=== PATIENT | female | born 1940 | race Caucasian/White ===

== ENCOUNTER 2019-04-25 11:12 | Inpatient (IN) ==
[2019-04-25 12:04] LABS: Eosinophils % 5.5 %; Mean Corpuscular Hemoglobin 30.2 pg (28.0-33.3); Mean Corpuscular Volume 93.2 fL (83.0-100.0); Monocytes % 6.4 %; Platelet Count 238 K/mcL (140-400)
[2019-04-25 12:06] LABS: Basophils % 0.2 %; Eosinophils # 0.5 K/mcL (0.0-0.6); Hematocrit 38.6 % (35.3-44.9); Hemoglobin 12.5 g/dL (11.5-15.4); Immature Granulocytes % 0.3 % (0-4); Lymphocytes # 0.5 K/mcL (0.6-4.6); Lymphocytes % 5.5 %; Mean Corpuscular HGB Conc 32.4 g/dL (31.6-35.5); Mean Platelet Volume 9.4 fL (9.4-12.4); Monocytes # 0.6 K/mcL (0.0-1.3); Neutrophils # 7.5 K/mcL (1.6-8.9); Red Blood Count 4.14 M/mcL (3.82-4.97); Red Cell Distribution Width 13.8 % (11.5-14.5); Segmented Neutrophils % 82.1 %; White Blood Count 9.1 K/mcL (4.3-11.1)
[2019-04-25 12:44] LABS: BUN/Creatinine Ratio 19 (6-26); Blood Urea Nitrogen 16 mg/dL (8-23); Calcium 9.4 mg/dL (8.6-10.3); Carbon Dioxide 25 mEq/L (23-29); Chloride 101 mEq/L (98-107); Glucose 79 mg/dL (70-105); Osmolality,Calculated 288 (280-300); Potassium 3.9 mEq/L (3.5-5.1); Sodium 139 mEq/L (136-145); Troponin I 0.03 ng/mL (< 0.04); eGFR For African Americans > 60 (> 60); eGFR For Non-African Americans > 60 (> 60)
[2019-04-25] MEDS ORDERED: methylPREDNISolone 125 MG/2 ML VIAL IVP ONE (13:05)
[2019-04-25] MEDS ORDERED: Ipratropium/Albuterol Neb 3 ML IH ONE (13:05)
--- NOTE | 2019-04-25 14:55 | Emergency Department Note ---
Disposition Clinical Impression: Acute exacerbation of chronic obstructive airways disease Disposition: Admitted As Inpatient Condition: Fair Time of Disposition: 15:00 SOB HPI - General Chief Complaint: ED Shortness of Breath/Dyspnea Stated Complaint: Possible pneumonia Time Seen by Provider: 04/25/19 11:20 Source: patient Limitations: no limitations Nursing Notes Reviewed: Yes Vital Signs Reviewed: Yes - History of Present Illness 79-year-old female presents emergency Department with concerns of difficulty in breathing. Patient reports that she had no episode of severe reflux 4 days ago and has since had difficulty in breathing. Patient reports cough productive of yellow-green sputum. She has a history of severe COPD. This occurred to the patient in the past. Patient reports a subjective history of fever however she did not take a temperature at home. Patient denies recent trauma. Reports chest pain only when coughing. - Related Data Home Medications Medication Instructions Recorded Confirmed Aspirin 81 mg PO DAILY 03/15/15 04/25/19 Cyanocobalamin (Vitamin B-12) 1,000 mcg PO DAILY 03/15/15 04/25/19 [Vitamin B-12] Esomeprazole Magnesium [Nexium] 40 mg PO DAILY 03/15/15 04/25/19 Atorvastatin [Lipitor] 10 mg PO HS 04/25/19 04/25/19 Calcium Carbonate/Vitamin D3 1 tab PO DAILY 04/25/19 04/25/19 [Calcium 600 + Vit D Tablet] Lisinopril [Zestril] 10 mg PO DAILY 04/25/19 04/25/19 Metoprolol Succinate [Toprol Xl] 25 mg PO DAILY 04/25/19 04/25/19 Tofacitinib Citrate [Xeljanz] 5 mg PO BID 04/25/19 04/25/19 predniSONE [PredniSONE] 2 mg PO DAILY 04/25/19 04/25/19 Previous Rx's Medication Instructions Recorded Albuterol Sulfate [Albuterol 2 puff IH Q4HR #1 hfa.aer.ad 08/08/18 Inhaler] Allergies Allergy/AdvReac Type Severity Reaction Status Date / Time Sulfa (Sulfonamide Allergy See Verified 04/25/19 20:34 Antibiotics) Comments Hydroxychloroquine AdvReac Vomiting Verified 04/25/19 20:34 [From Plaquenil] All systems ED: reviewed and negative except as stated. Review of Systems: As Per HPI Past Medical History - Past Medical History Attestation: Yes The following information was validated with the patient. Source: patient Medical history: Reports: COPD, hypertension Surgical history: Reports: cataract, knee replacement, orthopedic, other Psychiatric history: Reports: depression - Social History Smoking Status: Never smoker Smokeless Tobacco Status: No Alcohol use: Reports: none Drug use: Reports: none Physical Exam General: Alert and in no acute distress Skin: Warm, dry, intact Head: Normocephalic and atraumatic Neck: Supple, trachea midline and no tenderness Cardiovascular: RRR, no murmur, normal perfusion Respiratory: CTAB, no wheezing, cough, or respiratory distress Musculoskeletal: Normal strength, no tenderness, swelling or deformity GI: Soft, nontender, nondistended. Bowel sounds present Neuro: A&O to person, place, time and situation. No focal deficits noted on ex am Psychiatric: cooperative and appropriate mood and affect. - General Limitations: no limitations General appearance: alert, in no apparent distress Course Vital Signs Temperature 97 F L 04/25/19 11:13 Pulse Rate 66 04/25/19 11:13 Respiratory Rate 20 04/25/19 11:13 Blood Pressure 146/80 04/25/19 11:13 O2 Sat by Pulse Oximetry 95 04/25/19 11:13 Temperature 97.5 F L 04/25/19 19:54 Pulse Rate 95 04/25/19 19:54 Respiratory Rate 17 04/25/19 19:54 Blood Pressure 140/78 04/25/19 19:54 O2 Sat by Pulse Oximetry 93 04/25/19 19:54 Oxygen Delivery Oxygen Delivery Room Air Shortness of Breath/Dyspnea - [facility] Narrative Medical decision making narrative: Patient is afebrile, does not have a leukocytosis. Chest x-ray does not show acute infiltrate. She does have wheezing on the bilateral posterior lung rao and this is likely secondary to acute bronchitis versus acute COPD exacerbation. Patient was given breathing treatments and steroids emergency Department [facility] er she was unable to ambulate without becoming hypoxic. She desatted to 87% emergency department with ambulation. Patient will be admitted to hospitalist for further care and evaluation. - Medical Records Medical records reviewed: Yes I reviewed the patient's medical records. - Lab Data Lab results reviewed: Yes I reviewed the patient's lab results. Result diagrams: 04/25/19 11:46 09/10/19 11:46 Lab Results 04/25/19 04/25/19 04/25/19 Range/Units 11:46 11:46 11:46 WBC 9.1 (4.3-11.1) K/mcL RBC 4.14 (3.82-4.97) M/mcL Hgb 12.5 (11.5-15.4) g/dL Hct 38.6 (35.3-44.9) % MCV 93.2 (83.0-100.0) fL MCH 30.2 (28.0-33.3) pg MCHC 32.4 (31.6-35.5) g/dL RDW 13.8 (11.5-14.5) % Plt Count 238 (140-400) K/mcL MPV 9.4 (9.4-12.4) fL Immature Gran % 0.3 (0-4) % Seg Neutrophils % 82.1 % Lymphocytes % 5.5 % Monocytes % 6.4 % Eosinophils % 5.5 % Basophils % 0.2 % Neutrophils # 7.5 (1.6-8.9) K/mcL Lymphocytes # 0.5 L (0.6-4.6) K/mcL Monocytes # 0.6 (0.0-1.3) K/mcL Eosinophils # 0.5 (0.0-0.6) K/mcL Basophils # 0.0 (0.0-0.2) K/mcL Sodium 139 (136-145) mEq/L Potassium 3.9 (3.5-5.1) mEq/L Chloride 101 (98-107) mEq/L Carbon Dioxide 25 (23-29) mEq/L BUN 16 (8-23) mg/dL Creatinine 0.84 (0.60-1.20) mg/dL Est GFR ( Amer) > 60 (> 60) Est GFR (Non-Af Amer) > 60 (> 60) BUN/Creatinine Ratio 19 (6-26) Glucose 79 (70-105) mg/dL Calculated Osmolality 288 (280-300) Lactic Acid 1.2 (0.5-2.2) mmol/L Calcium 9.4 (8.6-10.3) mg/dL Troponin I 0.03 (< 0.04) ng/mL B-Natriuretic Peptide (Less than 100) pg/mL 04/25/19 Range/Units 11:46 WBC (4.3-11.1) K/mcL RBC (3.82-4.97) M/mcL Hgb (11.5-15.4) g/dL Hct (35.3-44.9) % MCV (83.0-100.0) fL MCH (28.0-33.3) pg MCHC (31.6-35.5) g/dL RDW (11.5-14.5) % Plt Count (140-400) K/mcL MPV (9.4-12.4) fL Immature Gran % (0-4) % Seg Neutrophils % % Lymphocytes % % Monocytes % % Eosinophils % % Basophils % % Neutrophils # (1.6-8.9) K/mcL Lymphocytes # (0.6-4.6) K/mcL Monocytes # (0.0-1.3) K/mcL Eosinophils # (0.0-0.6) K/mcL Basophils # (0.0-0.2) K/mcL Sodium (136-145) mEq/L Potassium (3.5-5.1) mEq/L Chloride (98-107) mEq/L Carbon Dioxide (23-29) mEq/L BUN (8-23) mg/dL Creatinine (0.60-1.20) mg/dL Est GFR ( Amer) (> 60) Est GFR (Non-Af Amer) (> 60) BUN/Creatinine Ratio (6-26) Glucose (70-105) mg/dL Calculated Osmolality (280-300) Lactic Acid (0.5-2.2) mmol/L Calcium (8.6-10.3) mg/dL Troponin I (< 0.04) ng/mL B-Natriuretic Peptide 145 H (Less than 100) pg/mL - Radiology Data Radiology results reviewed: Yes I reviewed the patient's radiology results. - EKG Data EKG attestation: Yes I reviewed and interpreted this EKG. EKG results narrative: Bradycardic sinus rhythm with a rate of 56 without evidence of STEMI or other dysrhythmia. QTC 413, QRS of 92
[2019-04-25] MEDS ORDERED: Mag Hydrox/Al Hydrox/Simeth 30 ML UDC PO PRN (15:11)
[2019-04-25] MEDS ORDERED: Naloxone 0.4 MG/ML INJ IVP PRN (15:11)
[2019-04-25] MEDS ORDERED: Acetaminophen 325 MG TABLET PO PRN (15:11)
[2019-04-25] MEDS ORDERED: MOM Conc 10 ML UD.LIQ PO PRN (15:11)
[2019-04-25] MEDS ORDERED: Ondansetron ODT 4 MG TAB.RAPDIS SL PRN (15:11)
[2019-04-25] MEDS ORDERED: Albuterol 2.5 MG/3 ML NEBULIZER IH PRN (15:14)
--- NOTE | 2019-04-25 15:40 | Internal Med History&Physical ---
Date of Encounter: 04/25/19 Time of Encounter: 15:15 Internal Medicine - H&P: HPI Chief complaint: cough and short of breath Admitted From: Emergency Dept Plans for Post Hospital Care: Home History of present illness: Ms. Jara is a 79 year old female with hx of RA for 54 years presented to ED with cough and dyspnea. She was evaluated and felt to have COPD and possibly pneumonia and admitted. Ms Jara stated that approx 4 days ago she had an episode of severe GERD and was up most of the night. Since that time she has had significant coughing and dyspnea. In the past she had a similar episode and had pneumonia develop at that time. She has felt feverish and chills. Did not take temp. Had episode of nausea and vomiting this AM. No diarrhea. Cough has been productive of purulent sputum. She was given steroids and aerosol in ED with improvement. Pt has hx of RA and maintains on prednisone 2mg daily due to prior hx of issues with stopping it (? adrenal insufficiency). Symptoms have improved with X eljanz. Past Med Surg Social Fam HX - Past Medical History Medical history: COPD, hypertension Additional medical history: SCHATZI RING,GOUT,PE,LUNG NODULE Psychiatric history: depression - Past Surgical History Surgical History: cataract, knee replacement, orthopedic, other Additional surgical history: SPINAL ABCESS,SKIN CANCER, - Social History Smoking Status: Never smoker Smokeless Tobacco Status: No Alcohol use: none Drug use: none - Family History Mother Living Status: Hx Family Cardiac Disorders: No Hx Family Respiratory Disorders: No Hx Family Cancer: No Hx Family GI Disorders: No Hx Family Genitourinary Disorders: No Hx Family Endocrine Disorder: No Hx Family Musculoskeletal Disorders: No Hx Family Neuromuscular Disorders: No Hx Family Neurologic Disorders: No Hx Family Autoimmune Disorders: Yes (RA) Hx Family Reproductive Disorders: No Hx Family Psychosocial Disorders: No Internal Medicine - H&P: Meds Aspirin 81 mg PO DAILY 03/15/15 [History] Atorvastatin [Lipitor] 10 mg PO DAILY 03/15/15 [History] Calcium Carbonate/Vitamin D3 [Calcium 600 + D Tablet] 1 tab PO DAILY 03/15/15 [History] Cyanocobalamin (Vitamin B-12) [Vitamin B-12] 1,000 mcg PO DAILY 03/15/15 [History] Esomeprazole Magnesium [Nexium] 40 mg PO DAILY 03/15/15 [History] Albuterol Sulfate [Albuterol Inhaler] 2 puff IH Q4HR #1 hfa.aer.ad 08/08/18 [Rx] Lisinopril 10 mg PO DAILY 04/25/19 [History] Metoprolol XL (24 HR) Succ 25 mg PO DAILY 04/25/19 [History] Prednisone 2 mg PO DAILY 04/25/19 [History] Xeljanz 5 mg PO BID 04/25/19 [History] Allergy/AdvReac Type Severity Reaction Status Date / Time Sulfa (Sulfonamide Allergy See Verified 04/25/19 11:17 Antibiotics) Comments Hydroxychloroquine AdvReac Vomiting Verified 04/25/19 11:17 [From Plaquenil] All Systems PM: A 10-system review of systems was performed and is negative for pertinent findings except as documented above in the HPI. - Constitutional Constitutional: chills, fatigue, fever(s), malaise - EENT Eyes: no change in vision, no loss of vision Ears: no decreased hearing Nose, mouth and throat: no dry mouth, no mouth pain - Cardiovascular Cardiovascular ROS IM: dyspnea, dyspnea on exertion, no chest pain, no edema, no lightheadedness, no orthopnea, no palpitations - Respiratory Respiratory: cough, dyspnea, dyspnea on exertion, wheezing, chest congestion, excessive phlegm production, change in phlegm color - Gastrointestinal Gastrointestinal: nausea, vomiting, no abdominal pain, no constipation, no diarrhea - Genitourinary Genitourinary: no difficulty urinating, no dysuria - Musculoskeletal Musculoskeletal ROS IM: arthralgias, deformity, joint swelling, limited range of motion, stiffness - Integumentary Integumentary IM: no rash - Neurological Neurological ROS: no dizziness, no paresthesias, no vertigo - Endocrine Endocrine IM: no excessive sweating - Hematologic/Lymphatic Hematologic/Lymphatic: no easy bleeding - Allergic/Immunologic Allergic/Immunologic: no itchy eyes - Constitutional Vitals: Temp Pulse Resp BP Pulse Ox 97 F L 110 22 144/83 100 04/25/19 11:13 04/25/19 15:23 04/25/19 15:23 04/25/19 15:23 04/25/19 15:23 General appearance: Present: A&O X 3, answers questions appropriately Exam: See below - Head Head exam: Present: atraumatic, normocephalic - Eye Eye exam: Present: EOMI, conjuntiva pink - ENT ENT exam: Present: mucous membranes dry - Neck Neck exam general surgery: Present: normal inspection, supple. Absent: nuchal rigidity - Respiratory Respiratory exam: Present: rales (R base), wheezes - Cardiovascular Cardiovascular exam: Present: RRR. Absent: systolic murmur, tachycardia - GI/Abdominal GI/Abdominal exam: Present: normal bowel sounds, soft. Absent: tenderness - Extremities Exam Extremities exam: Present: tenderness, warm. Absent: pedal edema (No significant joint swelling though there is chronic deformities from RA) - Neurological Exam Neurological exam: Present: alert, oriented X3, no focal deficits - Skin Skin exam: Present: dry, warm. Absent: rash Internal Med - H&P Results - Labs CBC & Chem 7: 04/25/19 11:46 04/25/19 11:46 Labs: Short CBC 04/25/19 Range/Units 11:46 WBC 9.1 (4.3-11.1) K/mcL Hgb 12.5 (11.5-15.4) g/dL Hct 38.6 (35.3-44.9) % Plt Count 238 (140-400) K/mcL Neutrophils # 7.5 (1.6-8.9) K/mcL BMP 04/25/19 11:46 Sodium 139 Potassium 3.9 Chloride 101 Carbon Dioxide 25 BUN 16 Creatinine 0.84 Glucose 79 Calcium 9.4 Cardiac Enzymes 04/25/19 Range/Units 11:46 Troponin I 0.03 (< 0.04) ng/mL - Impressions ITS Impressions Chest X-Ray 04/25/19 11:23 IMPRESSION: 1. No acute radiographic finding in the chest. D/ / Brock Turner MD / Brock Turner MD Interpreting Provider: Brock Turner MD - Assessment and Plan (1) Pneumonia Current Visit: Yes Status: Suspected Assessment and plan: Pt presented to ED with cough and dyspnea. Recent episode of severe GERD with p rior hx of pneumonia with a former GERD episode. Place in observation. Oxygen Aerosols, steroids IV abx. Check 2view CXR in AM. Fluids tonight. Check influenza, legionella and strep pneumoniae Qualifiers: Pneumonia type: aspiration pneumonia Aspiration pneumonia type: due to gastric secretions Laterality: right Lung location: lower lobe of lung Qualified Code(s): J69.0 - Pneumonitis due to inhalation of food and vomit (2) COPD exacerbation Current Visit: Yes Status: Suspected Assessment and plan: Observation Oxygen, aerosols, steroids, abx. (3) HTN (hypertension) Current Visit: Yes Status: Chronic Assessment and plan: Controlled at this time. Qualifiers: Hypertension type: essential hypertension Qualified Code(s): I10 - Essential (primary) hypertension (4) Rheumatoid arthritis Current Visit: Yes Status: Chronic Assessment and plan: Continue home meds. Steroid dose increased for lungs Qualifiers: Rheumatoid arthritis location: multiple sites Rheumatoid factor presence: unspecified presence Qualified Code(s): M06.9 - Rheumatoid arthritis, unspecified - Time Spent With Patient Total time spent is greater than 50% in coordination of care (as documented) at patient's floor/unit and/or counseling patient:
[2019-04-25] MEDS: Ipratropium/Albuterol Neb 3 ML IH SCH ×2 (15:49→22:44)
--- NOTE | 2019-04-25 16:19 | Electrocardiograph Report ---
[place] [address] Test Date: 2019-04-25 Pat Name: Susanne Jara Department: [id number] Room: 2A Gender: F [employer]ution Control Engineer: : 1940 Requested By: Bud Fish Order Number: [id number] Reading MD: Saman Chun Measurements Intervals [place] Rate: 56 P: -32 WI: 166 QRS: -45 QRSD: 92 T: 80 QT: 428 QTc: 413 Interpretive Statements Sinus rhythm LAD, Nonspecific T abnormalities, lateral leads Electronically Signed On 04-25-2019 16:17:56 EDT by Saman Chun
[2019-04-25] MEDS: MethylPREDNISolone 40 MG/ML VIAL IVP SCH ×2 (17:59→23:45)
[2019-04-25] MEDS: 0.9 % Sodium Chloride 1,000 ML IVC SCH (17:59)
[2019-04-26] MEDS: 0.9 % Sodium Chloride 1,000 ML IVC SCH (03:37)
[2019-04-26] MEDS: Ipratropium/Albuterol Neb 3 ML IH SCH ×3 (04:43→15:52)
[2019-04-26 04:50] LABS: Hematocrit 32.2 % (35.3-44.9); Mean Corpuscular HGB Conc 32.9 g/dL (31.6-35.5); Mean Corpuscular Hemoglobin 29.8 pg (28.0-33.3); Mean Corpuscular Volume 90.4 fL (83.0-100.0); Mean Platelet Volume 9.4 fL (9.4-12.4); Platelet Count 240 K/mcL (140-400); Red Blood Count 3.56 M/mcL (3.82-4.97); Red Cell Distribution Width 13.7 % (11.5-14.5); White Blood Count 9.4 K/mcL (4.3-11.1)
[2019-04-26 04:52] LABS: Hemoglobin 10.6 g/dL (11.5-15.4)
[2019-04-26 05:01] LABS: BUN/Creatinine Ratio 22 (6-26); Blood Urea Nitrogen 15 mg/dL (8-23); Calcium 8.6 mg/dL (8.6-10.3); Carbon Dioxide 21 mEq/L (23-29); Chloride 109 mEq/L (98-107); Glucose 184 mg/dL (70-105); Magnesium 1.5 mg/dL (1.6-2.6); Osmolality,Calculated 292 (280-300); Potassium 3.8 mEq/L (3.5-5.1); Sodium 138 mEq/L (136-145); eGFR For African Americans > 60 (> 60); eGFR For Non-African Americans > 60 (> 60)
[2019-04-26] MEDS: MethylPREDNISolone 40 MG/ML VIAL IVP SCH ×2 (05:42→21:15)
[2019-04-26] MEDS ORDERED: levoFLOXacin 750 MG/150 ML 750 MG/150 ML BAG IVPB SCH ×2 (08:00→09:00)
[2019-04-26] MEDS ORDERED: TOFACITINIB CITRATE 5 MG PO SCH (09:00)
[2019-04-26] MEDS: Metoprolol XL (24 HR) Succ 25 MG TAB.ER.24H PO SCH (09:03)
[2019-04-26] MEDS: Aspirin 81 MG TAB.CHEW PO SCH (09:03)
--- NOTE | 2019-04-26 09:28 | Internal Med Progress Note ---
<Frank Pandya - Last Filed: 04/26/19 13:51> Hospitalist Progress Note - Encounter Date of Encounter: 04/26/19 Time of Encounter: 09:21 - Subjective Interval History: Ms. Jara is an 79 y/o F who presented to the ED on 04/25 with difficulty breathing and SOB. She stated she had an episode of GERD 5 days ago and had been coughing ever since. Currently she is sitting comfortably in her bed and feels much better compared to when she arrived. Pt. complains of a headache and "a few" palpitations this morning which she believes may be due to her BP elevation today which is normally controlled at home; lightheadedness which is new onset, and wheezing. Pt. denies SOB, chest pain, coughing, vision changes, weakness, numbness, orthopnea, PND, abnormal urination or BM, and abdominal pain. - Exam Vitals: Temp Pulse Resp BP Pulse Ox 97.9 F 76 16 190/77 97 04/26/19 07:55 04/26/19 07:55 04/26/19 07:55 04/26/19 07:55 04/26/19 07:55 Exam: General: AOx3, no acute distress, pleasant affect Head: atraumatic, normocephalic Skin: Dry and warm, no rash, no lesions. Cardiovascular:S1 & S2, no m/r/g. No JVD. Lungs: Wheezing auscultated b/l, faint crackles in RLL base Abdomen:Soft, non-tender, no rigidity. Extremities:No edema, muscle strength and sensation intact Neurological:No focal deficits, cooperative with exam Pulses: Intact and regular on all 4 extremities Rest of the physical exam is non contributory. - Assessment and Plan (1) Pneumonia Current Visit: Yes Status: Suspected Assessment and Plan: Pt. presented to ED on 04/25 with dyspnea and SOB. Pt. stated she had severe GERD episode 4 days ago and has had pneumonia previously from severe GERD episodes. CXR on 04/25 showed no changes from previous CXR on 06/24/2018. Pt. started on IV Levaquin for suspected aspiration pneumonia; oxygen, steroids, and ipratropium/albuterol treatments for SOB. CXR on 04/26 showed no new pulmonary or cardiac processes. Cultures to be collected today, continuation of abx for suspected pneumonia. Pt. states she is feeling better compared to yesterday. (2) COPD exacerbation Current Visit: Yes Status: Suspected Assessment and Plan: Pt. being observed for exacerbation of COPD. Currently being treated with Ipratropium/albuterol treatments, oxygen, and steroids for SOB and dyspnea. Levaquin for possible aspiration pneumonia; CXR on 04/25 and 04/26 showed no new changes, cultures collected today to determine course of treatment. Continue treatment for possible pneumonia, beginning to decrease steroids and possibly discharge tomorrow. (3) HTN (hypertension) Current Visit: Yes Status: Chronic Assessment and Plan: Currently controlled, continuing home medications for HTN. (4) Rheumatoid arthritis Current Visit: Yes Status: Chronic Assessment and Plan: Currently controlled on Xeljanz and prednisone, no exacerbations at this time. Hgb decrease to 10.6 today, possibly side effect from xeljanz treatment; Hgb will be checked again on 04/27. Continuation of home medications. - Time Spent with Patient Total time spent is greater than 50% in coordination of care (as documented) at patient's floor/unit and/or counseling patient: Internal Medicine: Result - Labs CBC & Chem 7: 04/26/19 04:01 04/26/19 04:01 Labs: Short CBC 04/25/19 04/26/19 Range/Units 11:46 04:01 WBC 9.1 9.4 (4.3-11.1) K/mcL Hgb 12.5 10.6 L D (11.5-15.4) g/dL Hct 38.6 32.2 L (35.3-44.9) % Plt Count 238 240 (140-400) K/mcL Neutrophils # 7.5 (1.6-8.9) K/mcL BMP 04/25/19 04/26/19 11:46 04:01 Sodium 139 138 Potassium 3.9 3.8 Chloride 101 109 H Carbon Dioxide 25 21 L BUN 16 15 Creatinine 0.84 0.69 Glucose 79 184 H Calcium 9.4 8.6 Cardiac Enzymes 04/25/19 Range/Units 11:46 Troponin I 0.03 (< 0.04) ng/mL - Impressions Impressions Chest X-Ray 04/25/19 11:23 IMPRESSION: 1. No acute radiographic finding in the chest. D/ / Brock Turner MD / Brock Turner MD Interpreting Provider: Brock Turner MD Chest X-Ray 04/26/19 08:00 IMPRESSION: No acute cardiopulmonary process is seen. D/ / Ash Mcmillan MD / Ash Mcmillan MD Interpreting Provider: Ash Mcmillan MD Consult Discharge Plan - Plan Referrals: Joe Marie MD [Primary Care Provider] - <Tommy Person - Last Filed: 04/26/19 14:59> Hospitalist Progress Note - Encounter Date of Encounter: 04/26/19 - Exam Vitals: Temp Pulse Resp BP Pulse Ox 97.5 F L 82 16 146/77 97 04/26/19 11:35 04/26/19 11:35 04/26/19 11:35 04/26/19 11:35 04/26/19 11:35 - Assessment and Plan (1) Pneumonia Current Visit: Yes Status: Suspected (2) COPD exacerbation Current Visit: Yes Status: Suspected (3) HTN (hypertension) Current Visit: Yes Status: Chronic (4) Rheumatoid arthritis Current Visit: Yes Status: Chronic - Time Spent with Patient Total time spent is greater than 50% in coordination of care (as documented) at patient's floor/unit and/or counseling patient: Internal Medicine: Result - Labs CBC & Chem 7: 04/26/19 04:01 04/26/19 04:01 Labs: Short CBC 04/26/19 Range/Units 04:01 WBC 9.4 (4.3-11.1) K/mcL Hgb 10.6 L D (11.5-15.4) g/dL Hct 32.2 L (35.3-44.9) % Plt Count 240 (140-400) K/mcL BMP 04/26/19 04:01 Sodium 138 Potassium 3.8 Chloride 109 H Carbon Dioxide 21 L BUN 15 Creatinine 0.69 Glucose 184 H Calcium 8.6 - Impressions Impressions Chest X-Ray 04/26/19 08:00 IMPRESSION: No acute cardiopulmonary process is seen. D/ / Ash Mcmillan MD / Ash Mcmillan MD Interpreting Provider: Ash Mcmillan MD - Attending Attestation The history, physical exam, and medical decision making was performed by the medical student either while I was physically present and actively involved or I personally re-performed the exam and medical decision making. I have verified the accuracy of the medical student's documentation with regards to the history, physical exam findings, and medical decision making on 04/26/19. Ms Jara is currently hospitalized for presumed aspiration pneumonia. She remains moderate to high risk due to potential for worsening clinical status. Ms Jara is doing somewhat better today. No fever. Less cough. No pain. Still with some lightheadedness with standing and moving. Exam Alert Comfortable NC EOMI Mucus membranes dry Heart not tachy Rales R base with some bilateral wheeze Neck supple Abd soft. No edema. Moves all extremities. No rash. I/P 1. Probable asp pneumonia - continue abx as ordered. 2. COPD - decrease steroids. 3. Anemia - no signs of bleeding. Pt on Xeljanz. Recheck in AM. 4. Dizziness - ? volume related. Continue fluids. Probable d/c tomorrow. <Frank Pandya - Last Filed: 04/26/19 13:51> (1) Pneumonia Qualifiers: Pneumonia type: aspiration pneumonia Aspiration pneumonia type: due to gastric secretions Laterality: right Lung location: lower lobe of lung Qualified Code(s): J69.0 - Pneumonitis due to inhalation of food and vomit (3) HTN (hypertension) Qualifiers: Hypertension type: essential hypertension Qualified Code(s): I10 - Essential (primary) hypertension (4) Rheumatoid arthritis Qualifiers: Rheumatoid arthritis location: multiple sites Rheumatoid factor presence: unspecified presence Qualified Code(s): M06.9 - Rheumatoid arthritis, unspecified <Tommy Person - Last Filed: 04/26/19 14:59> (1) Pneumonia Qualifiers: Pneumonia type: aspiration pneumonia Aspiration pneumonia type: due to gas tric secretions Laterality: right Lung location: lower lobe of lung Qualified Code(s): J69.0 - Pneumonitis due to inhalation of food and vomit (3) HTN (hypertension) Qualifiers: Hypertension type: essential hypertension Qualified Code(s): I10 - Essential (primary) hypertension (4) Rheumatoid arthritis Qualifiers: Rheumatoid arthritis location: multiple sites Rheumatoid factor presence: unspecified presence Qualified Code(s): M06.9 - Rheumatoid arthritis, unspecified
[2019-04-26] MEDS ORDERED: Ringers Solution, Lactated 1,000 ML IVC SCH (15:00)
[2019-04-26] MEDS ORDERED: Perflutren Lipid Microsphere 1.3 ML in 0.9 % Sodium Chloride 8.7 ML IVP ONE (20:53)
--- NOTE | 2019-04-26 21:51 | Event Note ---
Date of Encounter: 04/26/19 Time of Encounter: 19:35 Alerted by pts. nurse ARETHA Duncan that the pt. was having right eye droop. Nurse requested I come see the pt. immediately. Went to see the pt. who was resting in bed. Right eye droop noted when compared to left. Daughter present stated that the droop had improved somewhat. I inquired if the pt. had a hx of CVA or TIA. Pt. stated she had a TIA 30-40 years ago but had no problems since. Patient stated that she felt her heart flutter today. Pt. denied hx of atrial fibrillation or anticoagulation. My neuro exam showed no facial droop, focal deficits, and strengths were equal bilaterally in UEs and LEs. Patient did state that she had recent difficulty finding her words. 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 Echocardiogram ordered. Last Echo was on 06/25/17 and showed LVEF of 55%, normal LV chamber size and wall thickness and function, mild left ventricular diastolic dysfunction, normal right ventricular structure and function, no evidence of pulmonary hypertension, and no significant valvular dysfunction. Stat MRI of the head/brain ordered w/o contrast. NIHSS Modified ordered. Padding to bedside rails. Communication order to allow for permissive HTN overnight w/close monitoring and reporting of BPs to me. Assess neurologic status Q2HR ordered. NPO until dysphagia screen passed. MRI results show prior insult right parietooccipital region with surrounding gliotic change, mild small vessel ischemic change in the periventricular white matter, and no acute infarct or acute hemorrhage. Nurse instructed to monitor this patient very closely and alert me immediately of any adverse or neurologic changes.
[2019-04-27] MEDS: Ipratropium/Albuterol Neb 3 ML IH SCH ×5 (00:06→22:02)
[2019-04-27 06:49] LABS: Basophils % 0.1 %; Hematocrit 28.8 % (35.3-44.9); Hemoglobin 9.5 g/dL (11.5-15.4); Immature Granulocytes % 0.5 % (0-4); Lymphocytes # 0.3 K/mcL (0.6-4.6); Lymphocytes % 2.2 %; Mean Corpuscular Hemoglobin 29.9 pg (28.0-33.3); Mean Corpuscular Volume 90.6 fL (83.0-100.0); Mean Platelet Volume 9.8 fL (9.4-12.4); Monocytes # 0.5 K/mcL (0.0-1.3); Monocytes % 3.1 %; Neutrophils # 13.8 K/mcL (1.6-8.9); Platelet Count 230 K/mcL (140-400); Red Blood Count 3.18 M/mcL (3.82-4.97); Red Cell Distribution Width 14.4 % (11.5-14.5); Segmented Neutrophils % 94.1 %
[2019-04-27 06:50] LABS: White Blood Count 14.7 K/mcL (4.3-11.1)
[2019-04-27 07:07] LABS: BUN/Creatinine Ratio 24 (6-26); Blood Urea Nitrogen 20 mg/dL (8-23); Calcium 8.8 mg/dL (8.6-10.3); Carbon Dioxide 21 mEq/L (23-29); Chloride 111 mEq/L (98-107); Glucose 194 mg/dL (70-105); Osmolality,Calculated 294 (280-300); Potassium 3.7 mEq/L (3.5-5.1); Sodium 138 mEq/L (136-145); eGFR For African Americans > 60 (> 60); eGFR For Non-African Americans > 60 (> 60)
[2019-04-27] MEDS: Magnesium Oxide 400 MG TABLET PO SCH (07:43)
[2019-04-27] MEDS: Metoprolol XL (24 HR) Succ 25 MG TAB.ER.24H PO SCH (07:44)
[2019-04-27] MEDS: MethylPREDNISolone 40 MG/ML VIAL IVP SCH ×2 (07:44→21:00)
[2019-04-27] MEDS: Aspirin 81 MG TAB.CHEW PO SCH (07:44)
[2019-04-27] MEDS: levoFLOXacin 750 MG TABLET PO SCH (07:44)
[2019-04-27] MEDS ORDERED: Isovue-370 500 ML BOTTLE IVP ONE (09:15)
--- NOTE | 2019-04-27 09:17 | Neurology - Consult Note ---
<Melo Hercules J - Last Filed: 04/27/19 16:30> Date of Encounter: 04/27/19 Time of Encounter: 09:15 Assessment and Plan (1) Ptosis Current Visit: Yes Status: Acute Neurology consult with concerns for CVA. Patient developed right eye ptosis overnight and dysphagia this morning. MRI of the brain obtained showing prior insult in the right parieto-occipital region with surrounding Liotti change. Mild small vessel ischemic changes in the periventricular white matter but no acute infarct or acute hemorrhage identified. The neurological exam was nonfocal and nonlateralizing without any symptoms which would make me suspect a central etiology. Brainstem was intact on exam as well. Given these findings I am suspicious that her symptoms are may be the result of myasthenia gravis, however we will also rule out acute coronary syndrome. I am ordering CT angiogram of both the head and neck; further recommendations pending this workup I will also order an acetylcholine receptor antibody Recommending speech consult for further evaluation low magnesium on admission of 1.5; IM team managing History of Present Illness Chief complaint: Rt eye ptosis of unknown etiology HPI: Ms. Jara is a 79 year old female with a PMH of COPD, HTN, RA (on Xeljanz). In brief, the patient notes that approximately 4 days ago she had experiencing GERD and generalized weakness and dyspnea with wheezing. This prompted evaluation in the ED and she was admitted and treated for a COPD exacerbation. Overnight the patient developed an episode of right eye ptosis. This morning she experienced an episode of dysphagia while eating breakfast. Neurology has been consulted for further evaluation with concern for a central neurological origin versus neuromuscular junction versus other. The patient denies any visual disturbance, headaches, head or neck pain/stiffness, focal weakness, sensory loss or changes, dizziness, nausea, vomiting, diarrhea, fevers, chills, night sweats, weight lo ss, urinary incontinence, fecal incontinence, dysuria, abdominal pain, rashes or lesions. At the time of my assessment this morning she notes that the right eye ptosis is completely resolved and denies any dysphagia. She does report that she still feels generally weak overall but is somewhat improved since admission with steroids. An MRI of the brain was completed showing a prior insults in the right parieto-occipital region with surrounding gliotic change. Mild small vessel ischemic change in the periventricular white matter. No acute infarct or acute hemorrhage found. CBC does reveal a mild leukocytosis with WBC of 14.7 and anemia with an H&H of 9.5/28.8 respectively. Due to panel shows hypomagnesemia with a serum mag of 1.5. Past Med Surg Social Fam HX - Past Medical History Medical history: COPD, hypertension Additional medical history: SCHATZI RING,GOUT,PE,LUNG NODULE Psychiatric history: depression - Past Surgical History Surgical History: cataract, knee replacement, orthopedic, other Additional surgical history: SPINAL ABCESS,SKIN CANCER, - Social History Smoking Status: Never smoker Smokeless Tobacco Status: No Alcohol use: none Drug use: none - Family History Mother Living Status: Hx Family Cardiac Disorders: No Hx Family Respiratory Disorders: No Hx Family Cancer: No Hx Family GI Disorders: No Hx Family Genitourinary Disorders: No Hx Family Endocrine Disorder: No Hx Family Musculoskeletal Disorders: No Hx Family Neuromuscular Disorders: No Hx Family Neurologic Disorders: No Hx Family Autoimmune Disorders: Yes (RA) Hx Family Reproductive Disorders: No Hx Family Psychosocial Disorders: No Medications and Allergies Aspirin 81 mg PO DAILY 03/15/15 [History] Cyanocobalamin (Vitamin B-12) [Vitamin B-12] 1,000 mcg PO DAILY 03/15/15 [History] Esomeprazole Magnesium [Nexium] 40 mg PO DAILY 03/15/15 [History] Albuterol Sulfate [Albuterol Inhaler] 2 puff IH Q4HR #1 [email or web address] 08/08/18 [Rx] Atorvastatin [Lipitor] 10 mg PO HS 04/25/19 [History] Calcium Carbonate/Vitamin D3 [Calcium 600 + Vit D Tablet] 1 tab PO DAILY 04/25/19 [History] Lisinopril [Zestril] 10 mg PO DAILY 04/25/19 [History] Metoprolol Succinate [Toprol Xl] 25 mg PO DAILY 04/25/19 [History] Tofacitinib Citrate [Xeljanz] 5 mg PO BID 04/25/19 [History] predniSONE [PredniSONE] 2 mg PO DAILY 04/25/19 [History] Allergy/AdvReac Type Severity Reaction Status Date / Time Sulfa (Sulfonamide Allergy See Verified 04/25/19 20:34 Antibiotics) Comments Hydroxychloroquine AdvReac Vomiting Verified 04/25/19 20:34 [From Plaquenil] All Systems: The remainder of the systems were reviewed and are negative Review of Systems: REVIEW OF SYSTEMS GENERAL: Negative for any nausea, vomiting, fevers, chills, or weight loss, fatigue NEUROLOGIC: Negative for any blurry vision, blind spots, double vision, dysarthria, hemiparesis, hemisensory deficits, vertigo, ataxia, seizures, paralysis, tingling, numbness, unilateral weakness or numbness/tingling Positive-right eye ptosis and dysphagia HEENT: Negative for any head trauma, neck trauma, neck stiffness, photophobia, phonophobia CARDIAC: Negative for any chest pain, peripheral edema. Positive-palpitations PULMONARY: Positive shortness of breath and wheezing on admission; this has resolved GASTROINTESTINAL: Negative for any abdominal pain, nausea, vomiting, bright red blood per rectum, melena. GENITOURINARY: Negative for any dysuria, hematuria, incontinence. ENDOCRINE: Thyroid trouble, heat/cold intolerance, excessive sweating MUSCULOSKELETAL: Positive-chronic decrease in activity tolerance due to rheumatoid arthritis The remainder of the review of systems reviewed and found to be negative Physical Examination - Vital Signs Vital Signs: Initial Vital Signs Temp Pulse Resp BP Pulse Ox 97 F L 66 20 146/80 95 04/25/19 11:13 04/25/19 11:13 04/25/19 11:13 04/25/19 11:13 04/25/19 11:13 - Exam Exam: Examination: General Examination: *CONSTITUTIONAL: Alert and oriented x3, no acute distress *GENERAL APPEARANCE OF PATIENT appears healthy and well groomed *EYES: pupils equal, round, reactive to light and accommodation, conjunctiva clear without masses or ulcerations, fundi normal. *CARDIOVASCULAR: no peripheral edema, distal temperature normal, dorsalis pedis pulses normal. Refer to vital signs * MUSCULOSKELETAL: *GAIT AND STATION: Deferred *ASSESSMENT OF MUSCLE STRENGTH IN THE UPPER AND LOWER EXTREMITIES bilateral deltoid, bicep, tricep, pharmacy sales representative strength, hip flexors ,anterior tibialis, dorsoflexion of the foot 5/5 *MUSCLE TONE IN THE UPPER AND LOWER EXTREMITIES normal. No abnormal movements, fasciculations or atrophy identified. Neurological: *ORIENTATION to person, situation, time and place *LANGUAGE AND FUNCTION no significant aphasia or dysarthia was noted. *ATTENTION AND CONCENTRATION are normal *LANGUAGE FUNCTION no significant aphasia or dysarthia was noted. *FUND OF KNOWLEDGE aware of current events, past history, vocabulary *MENTAL attention span and concentration normal. *CN II optic fundi were normal, no papilledema noted. *CN III,IV, PERRLA extraocular eye movements were full, no nystagmus, mild Rt eye ptosis noted *CN V shows normal sensation *CN VII shows normal facial movement symmetrically, upper and lower bilaterally. *CN VIII shows no significant hearing loss on exam *CN IX-X palate elevated symmetrically *CN XI normal strength in the sternocleidomastoid muscles, symmetrical shoulder shrugging. *CN XII tongue protruded in the midline, with normal strength and movement. *SENSORY EXAMINATION light touch intact *REFLEXES: DTRs in the bilateral biceps, brachioradialis and triceps are 2/4 and symmetrical bilaterally. Absent patellar due to knee replacements bilaterally. Achilles reflexes were 2/4 bilaterally *CEREBELLAR TESTING normal finger to nose, heel/knee/lyle *PAIN LEVEL 0/10 Results - Laboratory Findings CBC and BMP: 04/27/19 06:13 04/27/19 06:13 Abnormal lab findings: Abnormal lab results WBC 14.7 K/mcL (4.3-11.1) H D 04/27/19 06:13 RBC 3.18 M/mcL (3.82-4.97) L 04/27/19 06:13 Hgb 9.5 g/dL (11.5-15.4) L 04/27/19 06:13 Hct 28.8 % (35.3-44.9) L 04/27/19 06:13 Neutrophils # 13.8 K/mcL (1.6-8.9) H 04/27/19 06:13 Lymphocytes # 0.3 K/mcL (0.6-4.6) L 04/27/19 06:13 Chloride 111 mEq/L (98-107) H 04/27/19 06:13 Carbon Dioxide 21 mEq/L (23-29) L 04/27/19 06:13 Glucose 194 mg/dL (70-105) H 04/27/19 06:13 Magnesium 1.5 mg/dL (1.6-2.6) L 04/26/19 04:01 B-Natriuretic Peptide 145 pg/mL (Less than 100) H 04/25/19 11:46 - Diagnostic Findings Additional findings: MR/MR head/brain wo con IMPRESSION: Prior insult right parietooccipital region with surrounding gliotic change Mild small vessel ischemic change in the periventricular white matter No acute infarct or acute hemorrhage Consult Discharge Plan - Plan Referrals: Joe Marie MD [Primary Care Provider] - <Dagoberto Elizalde - Last Filed: 04/27/19 17:16> Date of Encounter: 04/27/19 Assessment and Plan (1) Ptosis Current Visit: Yes Status: Acute I have personally performed a [id number] assessment of the patient and have reviewed the PA/SENIOR IT BUSINESS ANALYST note. My impressions are as follows: It is my suspicion that we are dealing with a problem of the neuromuscular junction particularly myasthenia gravis. The patient's pupils were equally reactive intactness and in light. Extraocular motility was normal symmetrically. There is no evidence to suspect an individual cranial nerve III problem or Melissa syndrome. MRI scan was negative for evidence of acute brainstem infarct. No evidence of neoplasm in the brainstem. She does not have diplopia. We will check acetylcholine receptor antibody panel and I agree with CT angiogram of the head and neck. If this turns out to be ocular myasthenia gravis then either corticosteroids, or steroid sparing agents other treatment. Further recommendations will follow the outcome of the antibody testing panel. Qualifiers: Qualified Code(s): H02.401 - Unspecified ptosis of right eyelid History of Present Illness HPI: Chart was reviewed, patient was seen and examined independently. The case was discussed with the GLOBAL REGULATORY LEAD. I agree with the documentation of the history of present illness as stated above. All Systems: The remainder of the systems were reviewed and are negative Review of Systems: The balance of the systems review is negative. Physical Examination - Vital Signs Vital Signs: Initial Vital Signs Temp Pulse Resp BP Pulse Ox 97 F L 66 20 146/80 95 04/25/19 11:13 04/25/19 11:13 04/25/19 11:13 04/25/19 11:13 04/25/19 11:13 - Exam Exam: I have personally performed a [id number] assessment of the patient and have r eviewed the PA/SENIOR IT BUSINESS ANALYST note. My impressions are as follows: I agree with the documentation of the neurologic examination as outlined above. Results - Laboratory Findings CBC and BMP: 04/27/19 06:13 04/27/19 06:13 Abnormal lab findings: Abnormal lab results WBC 14.7 K/mcL (4.3-11.1) H D 04/27/19 06:13 RBC 3.18 M/mcL (3.82-4.97) L 04/27/19 06:13 Hgb 9.5 g/dL (11.5-15.4) L 04/27/19 06:13 Hct 28.8 % (35.3-44.9) L 04/27/19 06:13 Neutrophils # 13.8 K/mcL (1.6-8.9) H 04/27/19 06:13 Lymphocytes # 0.3 K/mcL (0.6-4.6) L 04/27/19 06:13 Chloride 111 mEq/L (98-107) H 04/27/19 06:13 Carbon Dioxide 21 mEq/L (23-29) L 04/27/19 06:13 Glucose 194 mg/dL (70-105) H 04/27/19 06:13 Magnesium 1.5 mg/dL (1.6-2.6) L 04/26/19 04:01 B-Natriuretic Peptide 145 pg/mL (Less than 100) H 04/25/19 11:46
--- NOTE | 2019-04-27 09:43 | Internal Med Progress Note ---
<Frank Pandya - Last Filed: 04/27/19 16:47> Hospitalist Progress Note - Encounter Date of Encounter: 04/27/19 Time of Encounter: 09:43 - Subjective Interval History: Ms. Jara is an 79 y/o F who is on hospital day 2 due to suspicion of aspiration pneumonitis. Pt. was started on levaquin and ipratropium/albuterol for dyspnea and SOB. Overnight, pt. had an episode of ptosis lasting approximately 2-2.5 hours and had some dysphagia this morning while attempting to eat a banana, otherwise pt. complains of some slight coughing. PT. denies confusion, weakness, lightheadedness, SOB, wheezing, or trouble urinating/BM. Patient is sitting comfortably in bed. - Exam Vitals: Temp Pulse Resp BP Pulse Ox 97.6 F 79 20 144/74 96 04/27/19 07:30 04/27/19 07:30 04/27/19 07:30 04/27/19 07:30 04/27/19 08:00 Exam: General: AOx3, no acute distress, pleasant affect Head: atraumatic, normocephalic Skin: Dry and warm, no rash, no lesions. Cardiovascular:S1 & S2, no m/r/g. No JVD. Lungs: Wheezing auscultated b/l, faint crackles in RLL base Abdomen:Soft, non-tender, no rigidity. Extremities:No edema, muscle strength and sensation intact Neurological:Pt. had episode of ptosis that resolved overnight; otherwise no focal deficits, cooperative with exam Pulses: Intact and regular on all 4 extremities Rest of the physical exam is non contributory. - Assessment and Plan (1) Pneumonia Current Visit: Yes Status: Suspected Assessment and Plan: Pt. presented to ED on 04/25 with dyspnea and SOB. Pt. stated she had severe GERD episode 6 days ago and has had pneumonia previously from severe GERD episodes. CXR on 04/25 showed no changes from previous CXR on 06/24/2018. Pt. started on IV Levaquin for suspected aspiration pneumonia; oxygen, steroids, and ipratropium/albuterol treatments for SOB. CXR on 04/26 showed no new pulmonary or cardiac processes. Cultures are still pending, continuation of abx for suspected pneumonia. Pt. states she is feeling much better, lungs sound much more clear. (2) COPD exacerbation Current Visit: Yes Status: Suspected Assessment and Plan: Pt. being observed for exacerbation of COPD. Currently being treated with Ipratropium/albuterol treatments, oxygen, and steroids for SOB and dyspnea. Levaquin for possible aspiration pneumonia; CXR on 04/25 and 04/26 showed no new changes, cultures pending. Continue treatment for possible pneumonia, steroid taper to continue. Pt. had episode of ptosis lasting approximately 2 hours last night and episode of dysphagia this morning. Neurology was consulted and examination showed no gross abnormalities in CN exam. CTA oh head and neck showed no abnormalities. (3) HTN (hypertension) Current Visit: Yes Status: Chronic Assessment and Plan: Currently controlled, continuing home medications for HTN. (4) Rheumatoid arthritis Current Visit: Yes Status: Chronic Assessment and Plan: Currently controlled on Xeljanz and prednisone, no exacerbations at this time. Hgb continues to trend down from 12.6 on 04/25 to 9.5 on 04/27 , possibly side effect from xeljanz treatment. Contact made with Pt.'s manager retail store Dr. Teressa Eden at the [facility] but was unable to speak to physician. Review of office records by nurse and PA at the [facility] demonstrated normal Hgb levels between 12-. Pt. instructed to stop xeljanz to try and recover Hgb level. GI consulted to do barium study on 04/28 and rectal exam for occult blood. Continued monitoring of Hgb. (5) Ptosis Current Visit: Yes Status: Acute Assessment and Plan: Pt. was admitted on 04/25 for COPD exacerbation and possible aspiration pneumonitis. Pt. had episode of ptosis lasting approximately 2 hours last night and episode of dysphagia this morning. Neurology was consulted and examination showed no gross abnormalities in CN exam. CTA oh head and neck showed no abnormalities. Labs sent for evaluation of acetylcholine receptor ab. Continue to monitor for new onset symptoms. - Time Spent with Patient Total time spent is greater than 50% in coordination of care (as documented) at patient's floor/unit and/or counseling patient: Internal Medicine: Result - Labs CBC & Chem 7: 04/27/19 06:13 04/27/19 06:13 Labs: Short CBC 04/27/19 Range/Units 06:13 WBC 14.7 H D (4.3-11.1) K/mcL Hgb 9.5 L (11.5-15.4) g/dL Hct 28.8 L (35.3-44.9) % Plt Count 230 (140-400) K/mcL Neutrophils # 13.8 H (1.6-8.9) K/mcL BMP 04/27/19 06:13 Sodium 138 Potassium 3.7 Chloride 111 H Carbon Dioxide 21 L BUN 20 Creatinine 0.82 Glucose 194 H Calcium 8.8 - Impressions Impressions Head CT 04/26/19 19:50 IMPRESSION: No acute intracranial abnormality. 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 D/ / Regino Esteban / Regino Esteban Interpreting Provider: Regino Esteban Brain MRI 04/26/19 21:26 IMPRESSION: Prior insult right parietooccipital region with surrounding gliotic change Mild small vessel ischemic change in the periventricular white matter No acute infarct or acute hemorrhage D/ / Fredo Castro / Fredo Castro Interpreting Provider: Fredo Castro Consult Discharge Plan - Plan Referrals: Joe Marie MD [Primary Care Provider] - <Tommy Person - Last Filed: 04/27/19 18:25> Hospitalist Progress Note - Encounter Date of Encounter: 04/27/19 - Exam Vitals: Temp Pulse Resp BP Pulse Ox 97.6 F 89 21 149/66 96 04/27/19 16:52 04/27/19 16:52 04/27/19 16:52 04/27/19 16:52 04/27/19 16:52 - Assessment and Plan (1) Pneumonia Current Visit: Yes Status: Suspected (2) COPD exacerbation Current Visit: Yes Status: Suspected (3) HTN (hypertension) Current Visit: Yes Status: Chronic (4) Rheumatoid arthritis Current Visit: Yes Status: Chronic (5) Ptosis Current Visit: Yes Status: Acute - Time Spent with Patient Total time spent is greater than 50% in coordination of care (as documented) at patient's floor/unit and/or counseling patient: Internal Medicine: Result - Labs CBC & Chem 7: 04/27/19 06:13 04/27/19 06:13 Labs: Short CBC 04/27/19 Range/Units 06:13 WBC 14.7 H D (4.3-11.1) K/mcL Hgb 9.5 L (11.5-15.4) g/dL Hct 28.8 L (35.3-44.9) % Plt Count 230 (140-400) K/mcL Neutrophils # 13.8 H (1.6-8.9) K/mcL BMP 04/27/19 06:13 Sodium 138 Potassium 3.7 Chloride 111 H Carbon Dioxide 21 L BUN 20 Creatinine 0.82 Glucose 194 H Calcium 8.8 - Impressions Impressions Head CT 04/26/19 19:50 IMPRESSION: No acute intracranial abnormality. 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 D/ / Regino Esteban / Regino Esteban Interpreting Provider: Regino Esteban Echocardiogram 04/26/19 20:36 Impressions: LVEF 60-65%. Normal LV chamber size, wall thickness and function. Moderate left ventricular diastolic dysfunction. Atypical septal motion consistent with bundle branch block. Normal right ventricular structure and function. No evidence of a PFO with agitated saline contrast. Mild aortic sclerosis suggested by Doppler. Mean gradient 10 mmHg. Mild tricuspid regurgitation. Mild pulmonary hypertension. Left Ventricular Wall Motion: Rest Echo Findings All wall segments showed normal motion. Findings: Study Quality * Technically adequate exam. ECG Findings * Normal sinus rhythm. * Sinus rhythm with BBB. Left Ventricle * LVEF 60-65%. * Normal LV chamber size, wall thickness and function. * Moderate left ventricular diastolic dysfunction. * Atypical septal motion consistent with bundle branch block. Right Ventricle * Normal right ventricular structure and function. Left Atrium * Mildly dilated left atrium. Right Atrium * Normal right atrial size. Interatrial Septum * No evidence of a PFO with agitated saline contrast. Aortic Valve * Trileaflet aortic valve. * No aortic regurgitation. * Mild aortic sclerosis suggested by Doppler. Mean gradient 10 mmHg. Mitral Valve * Mild mitral annular calcification * Trace mitral regurgitation. * No mitral stenosis. Tricuspid Valve * Normal tricuspid valve structure. * Mild tricuspid regurgitation. * Mild pulmonary hypertension. Pulmonic Valve * Normal pulmonic valve structure. * Mild pulmonic regurgitation. Aorta * Normally sized aortic root. Pericardium * The pericardium appears normal. IVC * Normal IVC dimensions and inspiratory collapse. Pulmonary Artery * Normal visualized portions of the main pulmonary artery. Brain MRI 04/26/19 21:26 IMPRESSION: Prior insult right parietooccipital region with surrounding gliotic change Mild small vessel ischemic change in the periventricular white matter No acute infarct or acute hemorrhage D/ / Fredo Castro / Fredo Castro Interpreting Provider: Fredo Castro Head CTA 04/27/19 09:15 IMPRESSION: 1. No acute intracranial abnormality. 2. 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 3. No flow limiting stenosis or dissection involving the cervical carotid/vertebral arteries. 4. No focal stenosis of the [id number]. D/ / Keyon Sommer MD / Keyon Sommer MD Interpreting Provider: Keyon Sommer MD Neck CTA 04/27/19 09:15 IMPRESSION: 1. No acute intracranial abnormality. 2. 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 3. No flow limiting stenosis or dissection involving the cervical carotid/vertebral arteries. 4. No focal stenosis of the [id number]. D/ / Keyon Sommer MD / Keyon Sommer MD Interpreting Provider: Keyon Sommer MD - Attending Attestation The history, physical exam, and medical decision making was performed by the medical student either while I was physically present and actively involved or I personally re-performed the exam and medical decision making. I have verified the accuracy of the medical student's documentation with regards to the history, physical exam findings, and medical decision making on 04/27/19. Ms Jara is currently admitted for pneumonia. She remains moderate to high risk due to potential for worsening clinical status. Ms Jara had episode of ptosis last night. Eval by neuro today. H/H lower as well. Having some dysphagia too. Exam Alert. Comfortable Mucus membranes dry NC EOMI Heart not tachy Decreased rales R base ABd soft No edema Moves all extremities No rash Slight ptosis R eye I/P 1. Ptosis - neuro eval appreciated 2. Anemia - contacted her manager retail store - hold Xeljanz. GI eval 3. Dysphagia - barium swallow and MBS per GI recommendation Further diagnoses and plan as above. <Frank Pandya - Last Filed: 04/27/19 16:47> (1) Pneumonia Qualifiers: Pneumonia type: aspiration pneumonia Aspiration pneumonia type: due to gastric secretions Laterality: right Lung location: lower lobe of lung Qualified Code(s): J69.0 - Pneumonitis due to inhalation of food and vomit (3) HTN (hypertension) Qualifiers: Hypertension type: essential hypertension Qualified Code(s): I10 - Essential (primary) hypertension (4) Rheumatoid arthritis Qualifiers: Rheumatoid arthritis location: multiple sites Rheumatoid factor presence: unspecified presence Qualified Code(s): M06.9 - Rheumatoid arthritis, unspecified <Tommy Person - Last Filed: 04/27/19 18:25> (1) Pneumonia Qualifiers: Pneumonia type: aspiration pneumonia Aspiration pneumonia type: due to gastric secretions Laterality: right Lung location: lower lobe of lung Qualified Code(s): J69.0 - Pneumonitis due to inhalation of food and vomit (3) HTN (hypertension) Qualifiers: Hypertension type: essential hypertension Qualified Code(s): I10 - Essential (primary) hypertension (4) Rheumatoid arthritis Qualifiers: Rheumatoid arthritis location: multiple sites Rheumatoid factor presence: unspecified presence Qualified Code(s): M06.9 - Rheumatoid arthritis, unspecified (5) Ptosis Qualifiers: Laterality: right Qualified Code(s): H02.401 - Unspecified ptosis of right eyelid
[2019-04-28 02:58] LABS: Basophils % 0.1 %; Hematocrit 29.1 % (35.3-44.9); Hemoglobin 9.7 g/dL (11.5-15.4); Immature Granulocytes % 0.8 % (0-4); Lymphocytes # 0.2 K/mcL (0.6-4.6); Lymphocytes % 1.7 %; Mean Corpuscular HGB Conc 33.3 g/dL (31.6-35.5); Mean Corpuscular Hemoglobin 30.6 pg (28.0-33.3); Mean Corpuscular Volume 91.8 fL (83.0-100.0); Mean Platelet Volume 9.2 fL (9.4-12.4); Monocytes # 0.4 K/mcL (0.0-1.3); Monocytes % 2.9 %; Neutrophils # 12.6 K/mcL (1.6-8.9); Platelet Count 225 K/mcL (140-400); Red Blood Count 3.17 M/mcL (3.82-4.97); Red Cell Distribution Width 14.6 % (11.5-14.5); Segmented Neutrophils % 94.5 %; White Blood Count 13.3 K/mcL (4.3-11.1)
[2019-04-28 03:20] LABS: BUN/Creatinine Ratio 28 (6-26); Blood Urea Nitrogen 25 mg/dL (8-23); Calcium 8.7 mg/dL (8.6-10.3); Carbon Dioxide 22 mEq/L (23-29); Chloride 110 mEq/L (98-107); Glucose 169 mg/dL (70-105); Osmolality,Calculated 296 (280-300); Potassium 4.4 mEq/L (3.5-5.1); Sodium 139 mEq/L (136-145); eGFR For African Americans > 60 (> 60); eGFR For Non-African Americans > 60 (> 60)
[2019-04-28] MEDS: Ipratropium/Albuterol Neb 3 ML IH SCH ×4 (04:10→22:35)
--- NOTE | 2019-04-28 10:31 | Gastroenterology Consult Note ---
<Dagoberto Shelley - Last Filed: 04/28/19 10:29> Date of Encounter: 04/28/19 Time of Encounter: 09:00 - Assessment and plan (1) Anemia Status: Acute Assessment and plan: Hgb on admission 12.5 and this AM Hgb 9.7 with MCV 91.8. Continue to monitor CBC and transfuse PRBC as needed. Check iron profile, ferritin, B12, and folate. Plan for EGD and colonoscopy as outpatient. Follow up with Dr. Arevalo next week in office. Qualifiers: Anemia type: unspecified type Qualified Code(s): D64.9 - Anemia, unspecified (2) Dysphagia Status: Acute Assessment and plan: Agree with barium swallow study as ordered. Consider EGD with possible dilation to r/o structural causes such as stricture, tumor, etc vs esophageal motility disorder as outpatient. Qualifiers: Dysphagia type: unspecified Qualified Code(s): R13.10 - Dysphagia, unspecified - Time Spent With Patient Total time spent is greater than 50% in coordination of care (as documented) at patient's floor/unit and/or counseling patient: GI History of Present Illness - Data of Consult Patient: new to practice Consult date: 04/28/19 Requesting Physician: Tommy Person DO - Consult Narrative Reason for consult: Dysphagia, anemia History of present illness: Ms. Jara is a 79 year old female with PMHx of COPD, HTN, PE, who presented to the ED with cough and dyspnea. She states 4 days before admission she had severe episode of GERD and was up most of the night. On 04/26 she developed an episode of right eye ptosis, then had episode of dysphagia on 04/27 while eating breakfast. She states her food felt like it got stuck in her throat. We were consulted to evaluate her dysphagia and anemia. Hgb on admission 12.5 and this AM Hgb 9.7 with MCV 91.8. She denies fever, chills, chest pain, abdominal pain, nausea, vomiting, melena, or hematochezia. Procedures: Colonoscopy 03/31/2016 Dr. Wick: 3 mm hyperplastic polyp. EGD 07/13/2014 Dr. Malcolm: Hiatus hernia, acute gastritis, multiple fundic gland polyps, mild chronic gastritis. EGD 06/03/2012 Dr. VanVoorhis: Hiatus hernia, acute gastritis, multiple fundic gland polyps. EGD 03/01/2011 Dr. Uirbe: Few gastric polyps. NSAIDs: ASA Anticoagulation: None Past Med Surg Social Fam HX - Past Medical History Medical history: COPD, hypertension Additional medical history: SCHATZI RING,GOUT,PE,LUNG NODULE Psychiatric history: depression - Past Surgical History Surgical History: cataract, knee replacement, orthopedic, other Additional surgical history: SPINAL ABCESS,SKIN CANCER, - Social History Smoking Status: Never smoker Smokeless Tobacco Status: No Alcohol use: none Drug use: none - Family History Mother Living Status: Hx Family Cardiac Disorders: No Hx Family Respiratory Disorders: No Hx Family Cancer: No Hx Family GI Disorders: No Hx Family Genitourinary Disorders: No Hx Family Endocrine Disorder: No Hx Family Musculoskeletal Disorders: No Hx Family Neuromuscular Disorders: No Hx Family Neurologic Disorders: No Hx Family Autoimmune Disorders: Yes (RA) Hx Family Reproductive Disorders: No Hx Family Psychosocial Disorders: No - Gastrointestinal Gastrointestinal: Present: as per HPI - Constitutional Constitutional: as per HPI - EENT Eyes: as per HPI Ears: Present: as per HPI Nose, mouth and throat: Present: as per HPI - Cardiovascular Cardiovascular ROS: Present: as per HPI - Respiratory Respiratory IM: Present: as per HPI - Genitourinary Genitourinary: Absent: change in color, Urinary frequency - Neurological ROS Neurological GI: Present: as per HPI - Hematologic/Lymphatic Hematologic/Lymphatic pediatric: Present: as per HPI - Musculoskeletal Musculoskeletal ROS GI: Present: as per HPI - Integumentary Integumentary GI: Present: as per HPI - Psychiatric ROS Psychiatric GI: Present: as per HPI - Endocrine Endocrine IM: Present: as per HPI - Constitutional Vitals: Temp Pulse Resp BP Pulse Ox 98.4 F 73 19 113/61 97 04/28/19 07:15 04/28/19 07:15 04/28/19 07:15 04/28/19 07:15 04/28/19 07:15 General appearance: Present: cooperative, A&O X 3, no acute distress, answers questions appropriately - Head Head exam: Present: atraumatic, normocephalic - Eye Eye exam: Present: normal appearance, sclera anicteric - ENT ENT exam: Present: mucous membranes moist - Neck Neck exam general surgery: Present: normal inspection, trachea midline - Respiratory Respiratory exam: Present: decreased breath sounds, CTAB. Absent: rales, rhonchi - Cardiovascular Cardiovascular exam: Present: RRR, +S1, +S2 - GI/Abdominal GI/Abdominal exam: Present: soft, no peritoneal signs. Absent: distended, firm, guarding, tenderness - Rectal Rectal exam: Present: deferred - Extremities Exam Extremities exam: Present: warm - Neurological Exam Neurological exam: Present: no focal deficits - Psychiatric Psychiatric exam: Present: normal affect, normal mood - Skin Skin exam: Present: dry, intact, normal color, warm Results - Labs CBC & Chem 7: 04/28/19 02:45 04/28/19 02:45 Labs: Last Result 04/28/19 02:45 Calcium 8.7 Entire Visit 04/28/19 02:45 Hgb 9.7 L Hct 29.1 L - Impressions Impressions Echocardiogram 04/26/19 20:36 Impressions: LVEF 60-65%. Normal LV chamber size, wall thickness and function. Moderate left ventricular diastolic dysfunction. Atypical septal motion consistent with bundle branch block. Normal right ventricular structure and function. No evidence of a PFO with agitated saline contrast. Mild aortic sclerosis suggested by Doppler. Mean gradient 10 mmHg. Mild tricuspid regurgitation. Mild pulmonary hypertension. Left Ventricular Wall Motion: Rest Echo Findings All wall segments showed normal motion. Findings: Study Quality * Technically adequate exam. ECG Findings * Normal sinus rhythm. * Sinus rhythm with BBB. Left Ventricle * LVEF 60-65%. * Normal LV chamber size, wall thickness and function. * Moderate left ventricular diastolic dysfunction. * Atypical septal motion consistent with bundle branch block. Right Ventricle * Normal right ventricular structure and function. Left Atrium * Mildly dilated left atrium. Right Atrium * Normal right atrial size. Interatrial Septum * No evidence of a PFO with agitated saline contrast. Aortic Valve * Trileaflet aortic valve. * No aortic regurgitation. * Mild aortic sclerosis suggested by Doppler. Mean gradient 10 mmHg. Mitral Valve * Mild mitral annular calcification * Trace mitral regurgitation. * No mitral stenosis. Tricuspid Valve * Normal tricuspid valve structure. * Mild tricuspid regurgitation. * Mild pulmonary hypertension. Pulmonic Valve * Normal pulmonic valve structure. * Mild pulmonic regurgitation. Aorta * Normally sized aortic root. Pericardium * The pericardium appears normal. IVC * Normal IVC dimensions and inspiratory collapse. Pulmonary Artery * Normal visualized portions of the main pulmonary artery. Head CTA 04/27/19 09:15 IMPRESSION: 1. No acute intracranial abnormality. 2. 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 3. No flow limiting stenosis or dissection involving the cervical carotid/vertebral arteries. 4. No focal stenosis of the azpumc-cc-Uy[place]. D/ / Keyon Sommer MD / Keyon Sommer MD Interpreting Provider: Keyon Sommer MD Neck CTA 04/27/19 09:15 IMPRESSION: 1. No acute intracranial abnormality. 2. 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 3. No flow limiting stenosis or dissection involving the cervical carotid/vertebral arteries. 4. No focal stenosis of the wsgiqz-si-Ntebdk. D/ / Keyon Sommer MD / Keyon Sommer MD Interpreting Provider: Keyon Sommer MD Consult Discharge Plan - Plan Additional Instructions: You are being discharged home on a prednisone taper. You will take this as prescribed for 8 days and resume your 2 mg maintenance prednisone after. You have also been prescribed an antibiotic named Augmentin for aspiration pne umonia. You are to take this for 6 days, twice per day, beginning this evening 05/01/19. Cardiology recommended a home holter monitor at discharge. We have stopped your Xeljanz secondary to anemia and myasthenia gravis symptoms at this time. Please follow-up with your rheumatoloigst for continued management. You were given a prescription for 30 days Pyridostigmine. Please take this as needed for problems swallowing and/or drooping eyelids. You are scheduled to follow-up with neurology in 1-2 weeks. Please follow-up with your PCP within 1-2 weeks. Return to the ER or call 911 immediately if you develop symptoms of chest pain, nausea, vomiting, acute weakness or facial drooping. Referrals: Fermín Arevalo MD [Partnered Physician] - (Schedule follow up for 1 week Web requested 05/01/2019) Joe Marie MD [Primary Care Provider] - 05/05/19 9:15 am (Please follow up as schedule...) Concetta Rivero MD [Partnered Physician] - 05/16/19 10:00 am (Please follow as schedule...) Prescriptions: Amoxicillin/Clavulanate [Augmentin] 875 mg PO BIDWM 6 Days #12 tablet Transmission Status: Received by [facility]/pharmacy #[id number] Pyridostigmine Br [Mestinon] 60 mg PO Q8HR PRN 30 Days #30 tablet PRN Reason: eye weakness Transmission Status: Received by [facility]/pharmacy #[id number] predniSONE [PredniSONE] 30 mg PO TAPER 8 Days #13 tablet Prescription Printed <Fermín Arevalo - Last Filed: 05/18/19 04:50> Date of Encounter: 04/28/19 - Time Spent With Patient Total time spent is greater than 50% in coordination of care (as documented) at patient's floor/unit and/or counseling patient: GI History of Present Illness - Data of Consult Requesting Physician: Tommy Person DO - Consult Narrative History of present illness: Ms. Jara is a 79 year old female - Constitutional Vitals: Temp Pulse Resp BP Pulse Ox 97.8 F 73 18 151/76 98 05/01/19 14:00 05/01/19 14:00 05/01/19 11:11 05/01/19 14:00 05/01/19 14:00 Results - Labs CBC & Chem 7: 05/01/19 03:35 05/01/19 03:35 - Attending Attestation Agree with assessment. Iron deficiency anemia. Will need EGD and colonoscopy as outpatient as no acute bleeding. May also need capsule based on the findings. Arrangements for a office visit and subsequent endoscopy are in the plan. I have personally performed a face to face evaluation on this patient. I have re viewed and agree with the care plan. History and Exam by me shows:
--- NOTE | 2019-04-28 11:15 | Neurology Progress Note ---
<Fuentes Mederos M - Last Filed: 04/28/19 13:14> Date of Encounter: 04/28/19 Time of Encounter: 09:45 Assessment and Plan (1) Ptosis Current Visit: Yes Status: Acute Symptoms resolved at this time. Patient reports ptosis was transient with spontaneous remission within 3 hours of symptoms onset. Acetylcholine Receptor Antibodies ordered to assess for Neuromuscular junction involvement such as in a Myasthenia Gravis. Given patients PMH including Rheumatoid arthritis she would be at a higher risk for developing Myasthenia Gravis. Importantly Guillaim [place] needs to be ruled out given patients recent pneumonia as well as two recent bu lbar signs in difficulty swallowing and ptosis. Spinal tap ordered to evaluate for GBS. Further recommendations per Dr. Elizalde, attending neurologist. Qualifiers: Laterality: right Qualified Code(s): H02.401 - Unspecified ptosis of right eyelid Subjective Principal diagnosis: Ptosis Interval history: Ms. Jara was seen today at bedside. No evidence of ptosis, weakness, or changes in vision at this time. Patient reports her symptoms lasted approximately 3 hours yesterday and resolved spontaneously. She states she was experiencing drooped eyelid on her right but denies blurry or double vision at that time or currently. She denies ever having similar episodes in the past. Patient does admit to past history of Rheumatoid Arthritis diagnosed at age 24 which she is currently treated with Xeljanz for and states "works wonders" She denies any facial drooping, weakness, numbness, tingling, dizziness, or fatigue currently. Objective - Constitutional Vitals: Temp Pulse Resp BP Pulse Ox 98.4 F 73 19 113/61 97 04/28/19 07:15 04/28/19 07:15 04/28/19 07:15 04/28/19 07:15 04/28/19 07:15 General appearance: Present: cooperative, A&O X 3, no acute distress, answers questions appropriately Exam: GENERAL: Comfortable in no acute distress HEENT: Normal LUNGS: CTA HEART: RRR, S1 S2 Audible, no murmur EXTREMITIES: No Pedal edema. DETAILED NEUROLOGICAL EXAMINATION: MENTAL STATUS: Oriented to person, place, date and situation. Memory: knows the President, Aware of recent events Recent Memory Intact, Attention span is normal Cranial Nerve Examination: CN - II: Visual Acuity, Field of Vision Normal, Fundus examination: No disk edema, Pupils- size shape reaction to light and accommodation: All normal. CN III, IV, : External ocular movements were intact, Pupils were reactive, Nodrooping of the eyelids CN V: Sensation over the face to light touch and pinprick all normal. Corneal reflexes not tested, jaw jerk normal. CN VII: No facial asymmetry, no flattening of nasolabial folds, no difficulty in closing the eyes, no loss of forehead wrinkles, no difficulty in eye-closure, frowning raising eyebrows. CNVIII: No significant hearing loss CN IX, X: Uvula centralized not deviated, Gag reflex: Not tested CN X1: Sternocleidomastoid, trapezius, normal or evidence of any weakness. CN X11: No Dysarthria, no wasting or fibrilation f tongue muscles, no deviation, tongue muscle strength normal. Motor examination: No hypertrophy, tone was normal, power grade 0-5 Upper limbs Proximal- No difficulty in lifting the arms above the head. Distal- No weakness in distal muscles On formal testing 5/5 all over Lower limbs On formal testing 5/5 all over Coordination: Pqvyyk-iu-cwxc normal. Target pursuit normal finger tapping normal, Rapid alternating moment of wrist normal Sensory system: Superficial sensations- Touch normal. Pain- Pinprick, Temperature all normal, Deep sensation normal, Joint position sense normal. Cortical sensation, Tactile discrimination, localization and extinction all normal. Deep tendon reflexes: Symmetrical bilateral Gait Examination: Deferred Results - Laboratory Findings CBC and BMP: 04/28/19 02:45 04/28/19 02:45 Abnormal lab findings: Abnormal lab results WBC 13.3 K/mcL (4.3-11.1) H 04/28/19 02:45 RBC 3.17 M/mcL (3.82-4.97) L 04/28/19 02:45 Hgb 9.7 g/dL (11.5-15.4) L 04/28/19 02:45 Hct 29.1 % (35.3-44.9) L 04/28/19 02:45 RDW 14.6 % (11.5-14.5) H 04/28/19 02:45 MPV 9.2 fL (9.4-12.4) L 04/28/19 02:45 Neutrophils # 12.6 K/mcL (1.6-8.9) H 04/28/19 02:45 Lymphocytes # 0.2 K/mcL (0.6-4.6) L 04/28/19 02:45 Chloride 110 mEq/L (98-107) H 04/28/19 02:45 Carbon Dioxide 22 mEq/L (23-29) L 04/28/19 02:45 BUN 25 mg/dL (8-23) H 04/28/19 02:45 BUN/Creatinine Ratio 28 (6-26) H 04/28/19 02:45 Glucose 169 mg/dL (70-105) H 04/28/19 02:45 Magnesium 1.5 mg/dL (1.6-2.6) L 04/26/19 04:01 B-Natriuretic Peptide 145 pg/mL (Less than 100) H 04/25/19 11:46 Consult Discharge Plan - Plan Referrals: Fermín Arevalo MD [Partnered Physician] - (Schedule follow up for 1 week) Joe Marie MD [Primary Care Provider] - <Dagoberto Elizalde - Last Filed: 04/28/19 15:46> Date of Encounter: 04/28/19 Assessment and Plan (1) Ptosis Current Visit: Yes Status: Acute I have personally performed a [id number]-jd-[id number] assessment of the patient and have reviewed the PA/SENIOR PUBLICATIONS SPECIALIST note. My impressions are as follows: I agree with the assessment and plan as stated above by Dr. Mederos. Recommend Mestinon 60 mg 3 times a day as treatment for symptoms of myasthenia gravis. The myasthenia gravis antibody panel was yet pending. However, she also has dysphagia felt that we should consider an rule out the possibility of theofficial variant of Guillain-[place]. The CSF protein count is yet pending. I will sign this case out to Dr. Rivero to follow-up with the weekend. Qualifiers: Laterality: right Qualified Code(s): H02.401 - Unspecified ptosis of right eyelid Subjective Interval history: Chart was reviewed, patient was seen and examined independently. The case was discussed with Dr. Mederos. I agree with his documentation of the subjective history as stated above. Lumbar puncture is been completed. No evidence of an infectious process however protein is yet pending. If the protein is elevated then I would recommend starting this patient on IVIG. I will also recommended we try Mestinon 60 mg 3 times a day on the event that we are dealing with myasthenia gravis. Objective - Constitutional Vitals: Temp Pulse Resp BP Pulse Ox 98.0 F 64 16 153/71 100 04/28/19 11:16 04/28/19 11:16 04/28/19 11:16 04/28/19 11:16 04/28/19 11:16 Exam: I have personally performed a xgnr-px-cqpy assessment of the patient and have reviewed the PA/SENIOR PUBLICATIONS SPECIALIST note. My impressions are as follows: I agree with the documentation of the neurologic exam as stated above. I would however like to add that her voice is somewhat hoarse and she does have difficulty with swallowing. Results - Laboratory Findings CBC and BMP: 04/28/19 02:45 04/28/19 02:45 Abnormal lab findings: Abnormal lab results WBC 13.3 K/mcL (4.3-11.1) H 04/28/19 02:45 RBC 3.17 M/mcL (3.82-4.97) L 04/28/19 02:45 Hgb 9.7 g/dL (11.5-15.4) L 04/28/19 02:45 Hct 29.1 % (35.3-44.9) L 04/28/19 02:45 RDW 14.6 % (11.5-14.5) H 04/28/19 02:45 MPV 9.2 fL (9.4-12.4) L 04/28/19 02:45 Neutrophils # 12.6 K/mcL (1.6-8.9) H 04/28/19 02:45 Lymphocytes # 0.2 K/mcL (0.6-4.6) L 04/28/19 02:45 Chloride 110 mEq/L (98-107) H 04/28/19 02:45 Carbon Dioxide 22 mEq/L (23-29) L 04/28/19 02:45 BUN 25 mg/dL (8-23) H 04/28/19 02:45 BUN/Creatinine Ratio 28 (6-26) H 04/28/19 02:45 Glucose 169 mg/dL (70-105) H 04/28/19 02:45 Magnesium 1.5 mg/dL (1.6-2.6) L 04/26/19 04:01 Transferrin 157 mg/dL (203-362) L 04/28/19 02:45 B-Natriuretic Peptide 145 pg/mL (Less than 100) H 04/25/19 11:46 Vitamin B12 206 pg/mL (250-1100) L 04/28/19 14:02
[2019-04-28 11:28] LABS: % Iron Saturation 30 % (15-50); Iron 65 mcg/dL (50-170); Transferrin 157 mg/dL (203-362)
[2019-04-28 11:47] LABS: Ferritin 65 ng/mL (10-120)
[2019-04-28 14:24] LABS: Red Blood Cell,CSF < 0.002 M/mcL
[2019-04-28 14:25] LABS: Appearance,CSF Clear (Clear)
[2019-04-28 15:09] LABS: Folate 15.7 ng/mL (3.0-16.0)
[2019-04-28] MEDS: Metoprolol XL (24 HR) Succ 25 MG TAB.ER.24H PO SCH (15:50)
[2019-04-28] MEDS: predniSONE 20 MG TABLET PO SCH (15:51)
[2019-04-28] MEDS: Magnesium Oxide 400 MG TABLET PO SCH (15:51)
[2019-04-28] MEDS: Aspirin 81 MG TAB.CHEW PO SCH (15:51)
[2019-04-28] MEDS: levoFLOXacin 750 MG TABLET PO SCH (15:51)
[2019-04-28] MEDS: Pyridostigmine Br 60 MG TABLET PO SCH ×2 (15:52→23:01)
[2019-04-28] MEDS ORDERED: Simethicone/Sodium Bic/Citr Ac 1 EACH GRAN.EF.PK PO ONE (16:22)
[2019-04-28] MEDS ORDERED: E-Z-HD (BARIUM SULF) SUSPENSION PO ONE (16:22)
[2019-04-28] MEDS ORDERED: E-Z-PAQUE (BARIUM SULF) SUSP 1 BOTTLE PO ONE (16:22)
[2019-04-28 16:49] LABS: Glucose,CSF 80 mg/dL (40-70); Total Protein,CSF 60 mg/dL (15-45)
--- NOTE | 2019-04-28 17:23 | Internal Med Progress Note ---
Hospitalist Progress Note - Encounter Date of Encounter: 04/28/19 Time of Encounter: 14:00 - Subjective Interval History: Ms Jara is currently admitted for pneumonia and R eye ptosis. She remains moderate to high risk due to potential for worsening clinical status. Ms Jara just returned from LP and modified barium swallow. Breathing is much improved. No fever or chills. Still with R eye ptosis. No other new symptoms. - Exam Vitals: Temp Pulse Resp BP Pulse Ox 97.4 F L 127 19 156/73 96 04/28/19 16:06 04/28/19 16:06 04/28/19 16:06 04/28/19 16:06 04/28/19 16:06 Exam: General: Alert and oriented. Comfortable at this time. Skin: Normal color, no rash, H: Normocephalic. EENT: EOMI, Slight R ptosis, pupils equal. Mucus membranes moist. Cardiovascular: Normal S1 & S2, no murmurs Pulse regular. Not tachycardic Lungs: Normal breath sounds, no wheezes. Improved sounds R base. Abdomen: Soft, non-tender, Normal bowel sounds. Extremities: No edema. Chronic RA deformities Neurological: Normal cognition and motor skills. Pulses: radial pulses normal +2. Rest of the physical exam is non contributory - Assessment and Plan (1) Pneumonia Current Visit: Yes Status: Suspected Assessment and Plan: Pt presented to ED with cough and dyspnea. Recent episode of severe GERD with prior hx of pneumonia with a former GERD episode. Has improved with abx. Anticipate will stop after fifth dose. (2) COPD exacerbation Current Visit: Yes Status: Suspected Assessment and Plan: Improved with steroids. Change to PO tomorrow. (3) HTN (hypertension) Current Visit: Yes Status: Chronic Assessment and Plan: Controlled at this time. (4) Rheumatoid arthritis Current Visit: Yes Status: Chronic Assessment and Plan: Continue home meds. Steroid dose increased for lungs Xeljanz currently on hold due to anemia (5) Ptosis Current Visit: Yes Status: Acute (6) Dysphagia Current Visit: Yes Status: Acute Assessment and Plan: Pt with symptoms of dysphagia. Started on Mestinon today for possible myasthenia. Also to have LP for possible GBS. (7) Anemia Current Visit: Yes Status: Acute Assessment and Plan: B12 low as well as chronic disease Replace. (8) Ptosis, right eyelid Current Visit: Yes Status: Acute Assessment and Plan: Appreciate neuro input. Mestinon started today. - Time Spent with Patient Total time spent is greater than 50% in coordination of care (as documented) at patient's floor/unit and/or counseling patient: Internal Medicine: Result - Labs CBC & Chem 7: 04/28/19 02:45 04/28/19 02:45 Labs: Short CBC 04/28/19 Range/Units 02:45 WBC 13.3 H (4.3-11.1) K/mcL Hgb 9.7 L (11.5-15.4) g/dL Hct 29.1 L (35.3-44.9) % Plt Count 225 (140-400) K/mcL Neutrophils # 12.6 H (1.6-8.9) K/mcL BMP 04/28/19 02:45 Sodium 139 Potassium 4.4 Chloride 110 H Carbon Dioxide 22 L BUN 25 H Creatinine 0.89 Glucose 169 H Calcium 8.7 - Impressions Impressions Barium Swallow X-Ray 04/28/19 09:00 IMPRESSION: Moderate gastroesophageal reflux seen to the level of mid esophagus. A small diverticulum in the mid to distal portion of the esophagus. D/ / Jasen Baker MD / Jasen Baker MD Interpreting Provider: Jasen Bkaer MD Videofluoroscopic Swallow 04/28/19 09:00 IMPRESSION: Swallowing mechanism grossly within normal limits without evidence of aspiration. Please see separate speech pathology report for full discussion of findings and recommendations. D/ / Jasen Baker MD / Jasen Baker MD Interpreting Provider: Jasen Baker MD Lumbar Puncture Fluoroscopy 04/28/19 11:31 IMPRESSION: Successful fluoroscopic-guided lumbar puncture. D/ / Jasen Baker MD / Jasen Baker MD Interpreting Provider: Jasen Baker MD Consult Discharge Plan - Plan Referrals: Fermín Arevalo MD [Partnered Physician] - (Schedule follow up for 1 week) Joe Marie MD [Primary Care Provider] - (1) Pneumonia Qualifiers: Pneumonia type: aspiration pneumonia Aspiration pneumonia type: due to gastric secretions Laterality: right Lung location: lower lobe of lung Qualified Code(s): J69.0 - Pneumonitis due to inhalation of food and vomit (3) HTN (hypertension) Qualifiers: Hypertension type: essential hypertension Qualified Code(s): I10 - Essential (primary) hypertension (4) Rheumatoid arthritis Qualifiers: Rheumatoid arthritis location: multiple sites Rheumatoid factor presence: unspecified presence Qualified Code(s): M06.9 - Rheumatoid arthritis, unspecified (5) Ptosis Qualifiers: Laterality: right Qualified Code(s): H02.401 - Unspecified ptosis of right eyelid (6) Dysphagia Qualifiers: Dysphagia type: unspecified Qualified Code(s): R13.10 - Dysphagia, unspecified (7) Anemia Qualifiers: Anemia type: unspecified type Qualified Code(s): D64.9 - Anemia, unspecified
[2019-04-29] MEDS: Ipratropium/Albuterol Neb 3 ML IH SCH ×4 (04:07→22:31)
[2019-04-29] MEDS: levoFLOXacin 750 MG TABLET PO SCH (07:12)
[2019-04-29] MEDS: Aspirin 81 MG TAB.CHEW PO SCH (07:12)
[2019-04-29] MEDS: predniSONE 20 MG TABLET PO SCH (07:12)
[2019-04-29] MEDS: Magnesium Oxide 400 MG TABLET PO SCH (07:12)
[2019-04-29] MEDS: Metoprolol XL (24 HR) Succ 25 MG TAB.ER.24H PO SCH (07:12)
[2019-04-29 07:14] LABS: Hematocrit 32.9 % (35.3-44.9); Mean Corpuscular HGB Conc 33.4 g/dL (31.6-35.5); Mean Corpuscular Hemoglobin 30.4 pg (28.0-33.3); Mean Corpuscular Volume 90.9 fL (83.0-100.0); Mean Platelet Volume 9.4 fL (9.4-12.4); Platelet Count 242 K/mcL (140-400); Red Blood Count 3.62 M/mcL (3.82-4.97); Red Cell Distribution Width 14.7 % (11.5-14.5); White Blood Count 11.2 K/mcL (4.3-11.1)
[2019-04-29] MEDS: Pyridostigmine Br 60 MG TABLET PO SCH ×2 (07:16→16:13)
[2019-04-29 07:22] LABS: Alanine Aminotransferase 21 Units/L (7-52); Albumin 3.5 g/dL (3.5-5.7); Albumin/Globulin Ratio 1.4 (1.1-2.2); Alkaline Phosphatase 61 Units/L (34-104); Aspartate Amino Transferase 28 Units/L (13-39); BUN/Creatinine Ratio 27 (6-26); Bilirubin,Total 0.4 mg/dL (0.3-1.0); Blood Urea Nitrogen 23 mg/dL (8-23); Calcium 9.1 mg/dL (8.6-10.3); Carbon Dioxide 24 mEq/L (23-29); Chloride 106 mEq/L (98-107); Globulin 2.5 g/dL (2.4-3.5); Glucose 123 mg/dL (70-105); Magnesium 1.9 mg/dL (1.6-2.6); Osmolality,Calculated 295 (280-300); Sodium 140 mEq/L (136-145); eGFR For African Americans > 60 (> 60); eGFR For Non-African Americans > 60 (> 60)
--- NOTE | 2019-04-29 12:18 | Neurology Progress Note ---
Date of Encounter: 04/29/19 Time of Encounter: 11:59 Assessment and Plan (1) Ptosis Current Visit: Yes Status: Acute Patient with RA on Xeljanc for two years who developed acute onset of transient right eyelid drooping and mild swallowing difficulty in the setting of probable pneumonia causing SOB. No limb weakness, DTRs are preserved. Suspect myasthenia Gravis which can cause ocular bulbar weakness. Although the symptoms have resolved and she may have responded to Mestinon. Patient is currently having non focal neurological examination. Elevated CSF protein at 60 is likely a nonspecific finding and this does not support the diagnosis of Guillain [place]/Jara Cutler variant without clinical areflexia and limb weakness/ophthalmoplegia. Will recommend neurology follow up in 1-2 weeks to follow up Myasthenia Gravis panel and symptoms. Agree with Mestinon 60mg q4 hour prn. I discussed her that if no symptoms she does not need to take mestinion. Agree with low dose of steroid therapy for her pulmonary conditions. Okay to discharge from neurology perspective. Qualifiers: Laterality: right Qualified Code(s): H02.401 - Unspecified ptosis of right eyelid Subjective Principal diagnosis: Ptosis and difficulty swallowing, SOB Interval history: Patient is seen and examined at bedside as a follow up from neurology service. She was initially seen by Dr. Dagoberto Elizalde neurology in the last few days. She developed SOB thought to be related to pneumonia. She developed transient right eyelid drooping and slight swallowing difficulty prior to admission which was subsequently resolved. She was thought to have possible myasthenia gravis with presence of ocular and bulbar symptoms without limb weakness. She has been t reated with Xeljanc 10 mg twice a day since the last 2 years which helped her arthritic pain significantly. Patient completed lumbar puncture for CSF study to assess possibility of Guillain [place] syndrome due to her proceeding pneumonia and presentation with SOB, eyelid drooping, swallowing difficulty and weakness. CSF showed normal cell count but slightly elevated protein level of 60. Clinically, the patient's denies any significant neurological deficits at this time. Eyelid drooping and swallowing difficulty already resolved. Patient reports no limb weakness. Most importantly, patient's knee reflex are preserved and this would argue against diagnosis of Guillain [place] or Jara Cutler variant Objective - Constitutional Vitals: Temp Pulse Resp BP Pulse Ox 97.9 F 73 16 157/67 95 04/29/19 11:41 04/29/19 11:41 04/29/19 11:41 04/29/19 11:41 04/29/19 11:41 General appearance: Present: cooperative, A&O X 3, no acute distress, answers questions appropriately - Neurological Exam Sensorimotor examination: Present: intact Motor Examination: Present: grossly full strength in all extremities Motor examination - right side: 5/5: deltoids, biceps, triceps, wrist flexion, wrist extension, straightening machine feeder, hip flexors, tibialis Anterior, quadriceps, toe extension (EHL), plantarflexion Motor examination - left side: 5/5: deltoids, biceps, triceps, wrist flexion, wrist extension, hip flexors, straightening machine feeder, quadriceps, tibialis Anterior, toe extension (EHL), plantarflexion Sensation intact: Present: intact Posture: Present: other (None) Reflex and gait examination: intact Reflexes: Biceps: 1+, Triceps: 1+, Brachioradialis: 1+, Patella: 2+, Achilles: 1+ Mental Status Examination: Present: awake, alert, oriented to person, oriented to place, oriented to time, follows commands appropriately, answers questions appropriately, no agnosia, no aphasia, no aproxia, lucid, does not follow commands Cranial nerve examination: Present: PERRL, EOMI, visual rao intact, corneal reflexes brisk symmetrically, sensory to face intact, mastication intact, no facial asymmetry is present, no dysarthria, hearing is intact symmetrically, soft palate elevates bilaterally upon phonation, gag reflex intact, flexes SCM and trapezius muscles symmetrically with full power, tongue protrudes midline Results - Laboratory Findings CBC and BMP: 04/29/19 06:38 04/29/19 06:38 Abnormal lab findings: Abnormal lab results WBC 11.2 K/mcL (4.3-11.1) H 04/29/19 06:38 RBC 3.62 M/mcL (3.82-4.97) L 04/29/19 06:38 Hgb 11.0 g/dL (11.5-15.4) L 04/29/19 06:38 Hct 32.9 % (35.3-44.9) L 04/29/19 06:38 RDW 14.7 % (11.5-14.5) H 04/29/19 06:38 MPV 9.2 fL (9.4-12.4) L 04/28/19 02:45 Neutrophils # 12.6 K/mcL (1.6-8.9) H 04/28/19 02:45 Lymphocytes # 0.2 K/mcL (0.6-4.6) L 04/28/19 02:45 Chloride 110 mEq/L (98-107) H 04/28/19 02:45 Carbon Dioxide 22 mEq/L (23-29) L 04/28/19 02:45 BUN 25 mg/dL (8-23) H 04/28/19 02:45 BUN/Creatinine Ratio 27 (6-26) H 04/29/19 06:38 Glucose 123 mg/dL (70-105) H 04/29/19 06:38 Magnesium 1.5 mg/dL (1.6-2.6) L 04/26/19 04:01 Transferrin 157 mg/dL (203-362) L 04/28/19 02:45 B-Natriuretic Peptide 145 pg/mL (Less than 100) H 04/25/19 11:46 Serum Total Protein 6.0 g/dL (6.4-8.9) L 04/29/19 06:38 Vitamin B12 206 pg/mL (250-1100) L 04/28/19 14:02 CSF Glucose 80 mg/dL (40-70) H 04/28/19 Unknown CSF Total Protein 60 mg/dL (15-45) H 04/28/19 Unknown Consult Discharge Plan - Plan Referrals: Fermín Arevalo MD [Partnered Physician] - (Schedule follow up for 1 week) Joe Marie MD [Primary Care Provider] -
--- NOTE | 2019-04-29 12:37 | Internal Med Progress Note ---
Hospitalist Progress Note - Encounter Date of Encounter: 04/29/19 Time of Encounter: 12:37 - Subjective Interval History: Ms Jara is currently admitted for pneumonia and anemia. She remains moderate to high risk due to potential for worsening clinical and respiratory status. Ms Jara had MBS yesterday. Today she said she coughed up white mucus looking like "chalk." Seems more congested today. Thinks the Mestinon has helped with her eye. No fever or chills. No CP. No GI issues. - Exam Vitals: Temp Pulse Resp BP Pulse Ox 97.9 F 73 16 157/67 95 04/29/19 11:41 04/29/19 11:41 04/29/19 11:41 04/29/19 11:41 04/29/19 11:41 Exam: General: Alert and oriented. Comfortable at this time. Skin: Normal color, no rash, H: Normocephalic. EENT: EOMI, Slight R ptosis - seems less today. Mucus membranes moist. Cardiovascular: Normal S1 & S2, no murmurs Pulse regular. Lungs: Upper airway congestion noted. Wheeze in upper lobes L greater than R. Abdomen: Soft, non-tender, Normal bowel sounds. Extremities: No edema. Chronic RA deformities Neurological: Normal cognition and motor skills. Pulses: radial pulses normal +2. Rest of the physical exam is non contributory - Assessment and Plan (1) Pneumonia Current Visit: Yes Status: Suspected Assessment and Plan: Pt presented to ED with cough and dyspnea. Recent episode of severe GERD with prior hx of pneumonia with a former GERD episode. Chest is more congested today after MBS yesterday. Repeat CXR. Continue diet for now. Abx changed to Unasyn. (2) COPD exacerbation Current Visit: Yes Status: Suspected Assessment and Plan: Improved with steroids. Currently on PO. Will plan for taper. (3) HTN (hypertension) Current Visit: Yes Status: Chronic Assessment and Plan: Controlled at this time. (4) Rheumatoid arthritis Current Visit: Yes Status: Chronic Assessment and Plan: Continue home meds. Steroid dose increased for lungs Xeljanz currently on hold due to anemia (5) Ptosis Current Visit: Yes Status: Acute Assessment and Plan: Appears to be autoimmune/Myasthenia. Seems better with mestinon. Plan for PRN Mestinon at discharge. (6) Dysphagia Current Visit: Yes Status: Acute Assessment and Plan: Continues with some coughing and congestion. MBS negative. (7) Anemia Current Visit: Yes Status: Acute Assessment and Plan: B12 low. Anemia improving with holding Xeljanz. - Time Spent with Patient Total time spent is greater than 50% in coordination of care (as documented) at patient's floor/unit and/or counseling patient: Internal Medicine: Result - Labs CBC & Chem 7: 04/29/19 06:38 04/29/19 06:38 Labs: Short CBC 04/29/19 Range/Units 06:38 WBC 11.2 H (4.3-11.1) K/mcL Hgb 11.0 L (11.5-15.4) g/dL Hct 32.9 L (35.3-44.9) % Plt Count 242 (140-400) K/mcL BMP 04/29/19 06:38 Sodium 140 Potassium 4.0 Chloride 106 Carbon Dioxide 24 BUN 23 Creatinine 0.84 Glucose 123 H Calcium 9.1 Liver Function 04/29/19 Range/Units 06:38 Total Bilirubin 0.4 (0.3-1.0) mg/dL AST 28 (13-39) Units/L ALT 21 (7-52) Units/L Alkaline Phosphatase 61 (34-104) Units/L Albumin 3.5 (3.5-5.7) g/dL - Impressions Impressions Barium Swallow X-Ray 04/28/19 09:00 IMPRESSION: Moderate gastroesophageal reflux seen to the level of mid esophagus. A small diverticulum in the mid to distal portion of the esophagus. D/ / Jasen Baker MD / Jasen Baker MD Interpreting Provider: Jasen Baker MD Videofluoroscopic Swallow 04/28/19 09:00 IMPRESSION: Swallowing mechanism grossly within normal limits without evidence of aspiration. Please see separate speech pathology report for full discussion of findings and recommendations. D/ / Jasen Baker MD / Jasen Baker MD Interpreting Provider: Jasen Baker MD Lumbar Puncture Fluoroscopy 04/28/19 11:31 IMPRESSION: Successful fluoroscopic-guided lumbar puncture. D/ / Jasen Baker MD / Jasen Baker MD Interpreting Provider: Jasen Baker MD Consult Discharge Plan - Plan Referrals: Fermín Arevalo MD [Partnered Physician] - (Schedule follow up for 1 week) Joe Marie MD [Primary Care Provider] - (1) Pneumonia Qualifiers: Pneumonia type: aspiration pneumonia Aspiration pneumonia type: due to ga stric secretions Laterality: right Lung location: lower lobe of lung Qualified Code(s): J69.0 - Pneumonitis due to inhalation of food and vomit (3) HTN (hypertension) Qualifiers: Hypertension type: essential hypertension Qualified Code(s): I10 - Essential (primary) hypertension (4) Rheumatoid arthritis Qualifiers: Rheumatoid arthritis location: multiple sites Rheumatoid factor presence: unspecified presence Qualified Code(s): M06.9 - Rheumatoid arthritis, unspecified (5) Ptosis Qualifiers: Laterality: right Qualified Code(s): H02.401 - Unspecified ptosis of right eyelid (6) Dysphagia Qualifiers: Dysphagia type: unspecified Qualified Code(s): R13.10 - Dysphagia, unspecified (7) Anemia Qualifiers: Anemia type: unspecified type Qualified Code(s): D64.9 - Anemia, unspecified
[2019-04-29] MEDS: Ampicillin/Sulbactam 1,500 MG in 0.9 % Sodium Chloride Mini Bag 100 ML IVPB SCH ×2 (12:50→17:02)
[2019-04-29] MEDS: Cyanocobalamin (B-12) 1,000 MCG TABLET PO SCH (16:13)
[2019-04-30] MEDS: Pyridostigmine Br 60 MG TABLET PO SCH ×2 (00:34→08:02)
[2019-04-30] MEDS: Ampicillin/Sulbactam 1,500 MG in 0.9 % Sodium Chloride Mini Bag 100 ML IVPB SCH ×4 (00:34→18:16)
--- NOTE | 2019-04-30 03:56 | Event Note ---
Date of Encounter: 04/30/19 Time of Encounter: 03:30 Alerted by pts. nurse that the patient was having periods of tachycardia and bradycardia where HR would jump to 120s and then drop to the 30s. Pt. originally admitted for PNA and COPD exacerbation. Patient then developed right eye droop which was concerning for CVA/TIA versus Guillain [place]. Went to see the pt. who was resting in bed but anxious d/t these current symptoms. Patient reports she feels a flutter in her chest during these episodes. Patient states she was seen by Cardiology for these symptoms previously and they wanted to put her on a two- week Holter monitor which she did not complete. Cardiology consult ordered but not confirmed d/t time of night placed. Day Hospitalist to follow up on and confirm Cardiology consult in a.m. Nurse instructed to continue monitoring this patient very closely and alert me immediately of any adverse or new changes/arrhythmias.
[2019-04-30] MEDS: Ipratropium/Albuterol Neb 3 ML IH SCH ×4 (03:58→23:50)
[2019-04-30] MEDS: Metoprolol XL (24 HR) Succ 25 MG TAB.ER.24H PO SCH (08:01)
[2019-04-30] MEDS: Aspirin 81 MG TAB.CHEW PO SCH (08:02)
[2019-04-30] MEDS: Magnesium Oxide 400 MG TABLET PO SCH (08:02)
[2019-04-30] MEDS: Cyanocobalamin (B-12) 1,000 MCG TABLET PO SCH (08:02)
[2019-04-30] MEDS: predniSONE 20 MG TABLET PO SCH (08:02)
[2019-04-30] MEDS ORDERED: Pyridostigmine Br 60 MG TABLET PO PRN (10:47)
--- NOTE | 2019-04-30 10:59 | Cardiology Consult Note ---
<Jonah Camargon - Last Filed: 04/30/19 13:01> Date of Encounter: 04/30/19 Time of Encounter: 09:00 Assessment and Plan (1) Tachy-humaira syndrome Current Visit: Yes Status: Acute States it feels like she has "a flock of butterflies" in her chest. Denies chest pain. Holter in 2016: Underlying rhythm is sinus, average HR 70 bpm, occasional supraventricular ectopy, One run of SVT, 9 beats at 133 bpm.. Denied cardio consult at that time. 12hr tele reviewed: Min HR 39, Max HR 117, average HR 71, NSR w/ occasional PVCs and frequent PACs, no events noted. Echo 04/26/19: LVEF 60-65%, Normal LV chamber size, wall thickness and function. Recommending continue BB & continuous 2 week event monitor with follow-up in our office. Pt is agreeable to plan. Cardiology will sign off at this time, please re-consult as needed. Discussion w patient/family: The assessment and plan as outlined above was discussed with the patient and/or family members who expressed understanding and agreement. All questions were answered. Thank you for involving us in the care of your patient. Please call with any questions. The above assessment and plan will be discussed with Dr. Galaviz and I will make changes as necessary. History of Present Illness Consult date: 04/30/19 Consult reason: Tachycardia/bradycardia History of present illness: Ms. Jara is a 79 year old female with PMH of RA for 54 years presented to ED with cough and dyspnea. She was evaluated and felt to have COPD and possibly pneumonia and admitted. States approx 4 days ago she had an episode of severe GERD and was up most of the night. Since that time she has had significant coughing and dyspnea. In the past she had a similar episode and had pneumonia develop at that time. She has felt feverish and chills. Did not take temp. Had episode of nausea and vomiting this AM. No diarrhea. Cough has been productive of purulent sputum. Past Med Surg Social Fam HX - Past Medical History Medical history: COPD, hypertension Additional medical history: SCHATZI RING,GOUT,PE,LUNG NODULE Psychiatric history: depression - Past Surgical History Surgical History: cataract, knee replacement, orthopedic, other Additional surgical history: SPINAL ABCESS,SKIN CANCER, - Social History Smoking Status: Never smoker Smokeless Tobacco Status: No Alcohol use: none Drug use: none - Family History Mother Living Status: Hx Family Cardiac Disorders: No Hx Family Respiratory Disorders: No Hx Family Cancer: No Hx Family GI Disorders: No Hx Family Genitourinary Disorders: No Hx Family Endocrine Disorder: No Hx Family Musculoskeletal Disorders: No Hx Family Neuromuscular Disorders: No Hx Family Neurologic Disorders: No Hx Family Autoimmune Disorders: Yes (RA) Hx Family Reproductive Disorders: No Hx Family Psychosocial Disorders: No Medications and Allergies Aspirin 81 mg PO DAILY 03/15/15 [History] Cyanocobalamin (Vitamin B-12) [Vitamin B-12] 1,000 mcg PO DAILY 03/15/15 [History] Esomeprazole Magnesium [Nexium] 40 mg PO DAILY 03/15/15 [History] Albuterol Sulfate [Albuterol Inhaler] 2 puff IH Q4HR #1 [email or web address] 08/08/18 [Rx] Atorvastatin [Lipitor] 10 mg PO HS 04/25/19 [History] Calcium Carbonate/Vitamin D3 [Calcium 600 + Vit D Tablet] 1 tab PO DAILY 04/25/19 [History] Lisinopril [Zestril] 10 mg PO DAILY 04/25/19 [History] Metoprolol Succinate [Toprol Xl] 25 mg PO DAILY 04/25/19 [History] Tofacitinib Citrate [Xeljanz] 5 mg PO BID 04/25/19 [History] predniSONE [PredniSONE] 2 mg PO DAILY 04/25/19 [History] 3 Allergy/AdvReac Type Severity Reaction Status Date / Time Sulfa (Sulfonamide Allergy See Verified 04/25/19 20:34 Antibiotics) Comments Hydroxychloroquine AdvReac Vomiting Verified 04/25/19 20:34 [From Plaquenil] All Systems Review: The remainder of the systems were reviewed and are negative - Cardiovascular Cardiovascular: as per HPI Physical Examination Vital Signs, Last 4 Hours Temp Pulse Resp BP Pulse Ox 04/30/19 07:51 97.6 F 55 16 138/74 98 General: Conversant, No Apparent Distress HEENT: Atraumatic, Normocephaly, Mucus Membranes Moist Neck: No JVD Cardiac: Reg Rate and Rhythm, Normal S1 and S2, No Murmur Lungs: Normal Breath Sounds, No Wheeze, Rales, Rhonchi Neuro: Alert and responsive, No focal deficits noted Abdomen: Soft, Non-Tender Skin: No rashes noted on visualized skin Musculoskeletal: No Chest Wall Tenderness Extremities: No Clubbing, No Cyanosis, No Edema, Normal Pulses Results 04/29/19 06:38 04/29/19 06:38 - Imaging and Cardiology Echo: report reviewed Other Results: 12hr tele reviewed: average HR 71, NSR w/ occasional PVCs/freq. PACs - EKG Interpretation EKG results cardiology: personally reviewed, sinus rhythm (sinus bradicardia) Consult Discharge Plan - Plan Referrals: Fermín Arevalo MD [Partnered Physician] - (Schedule follow up for 1 week) Joe Marie MD [Primary Care Provider] - <KarinaorbinsonMaribel - Last Filed: 04/30/19 15:21> Date of Encounter: 04/30/19 - Attending Attestation I examined this patient and my medical decision-making was reviewed with the PROPERTY COORDINATOR. I agree with the documented findings, disposition and treatment plan as described. Ms. Jara presents with palpitations. Frequent PACs noted on telemetry, average HR 71 bpm. Normal LV systolic function. Consider increasing Toprol from 25mg to 37.5mg daily. Two week monitor ordered for discharge. Assessment and Plan Discussion w patient/family: The assessment and plan as outlined above was discussed with the patient and/or family members who expressed understanding and agreement. All questions were answered. Thank you for involving us in the care of your patient. Please call with any questions. History of Present Illness History of present illness: Ms. Jara is a 79 year old female All Systems Review: The remainder of the systems were reviewed and are negative Results 04/29/19 06:38 04/29/19 06:38
--- NOTE | 2019-04-30 11:19 | Internal Med Progress Note ---
Hospitalist Progress Note - Encounter Date of Encounter: 04/30/19 Time of Encounter: 11:17 - Subjective Interval History: Ms Jara is currently admitted for asp pneumonia and myasthenic symptoms. She remains moderate to high risk due to potential for worsening clinical and respiratory status. Ms Jara had some bradycardia last night. Feels OK now. Thinks her chest congestion is doing better today with change in abx. No fever or chills. CXR negative yesterday. No GI issues. B12 level low. - Exam Vitals: Temp Pulse Resp BP Pulse Ox 97.6 F 55 16 138/74 98 04/30/19 07:51 04/30/19 07:51 04/30/19 07:51 04/30/19 07:51 04/30/19 07:51 Exam: General: Alert and oriented. Comfortable at this time. Pleasant and interactive. Skin: Normal color, no rash, H: Normocephalic. EENT: EOMI, No ptosis noted now. Mucus membranes moist. Cardiovascular: Normal S1 & S2, no murmurs Pulse regular. Not bradycardic or tachycardic now. Lungs: No upper airway congestion today. No wheeze noted. Abdomen: Soft, non-tender, Normal bowel sounds. Extremities: No edema. Chronic RA deformities Neurological: Normal cognition and motor skills. Pulses: radial pulses normal +2. Rest of the physical exam is non contributory - Assessment and Plan (1) Tachy-humaira syndrome Current Visit: Yes Status: Suspected Assessment and Plan: Pt had episode of bradycardia followed by tachycardia last night. Metoprolol held this AM. Could be related to Mestinon To have holter at discharge. (2) Pneumonia Current Visit: Yes Status: Suspected Assessment and Plan: Pt presented to ED with cough and dyspnea. Recent episode of severe GERD with prior hx of pneumonia with a former GERD episode. CXR yesterday negative. Switched to Unasyn with some improvement today. Continue IV overnight and then plan PO Augmentin at discharge. (3) COPD exacerbation Current Visit: Yes Status: Suspected Assessment and Plan: Improved with steroids. Currently on PO. Will plan for taper at discharge. (4) HTN (hypertension) Current Visit: Yes Status: Chronic Assessment and Plan: Controlled at this time. (5) Rheumatoid arthritis Current Visit: Yes Status: Chronic Assessment and Plan: Continue home meds. Steroid dose increased for lungs Xeljanz currently on hold due to anemia (6) Ptosis Current Visit: Yes Status: Acute Assessment and Plan: Appears to be autoimmune/Myasthenia. Seems better with mestinon. Plan for PRN Mestinon at discharge. (7) Dysphagia Current Visit: Yes Status: Acute Assessment and Plan: Continues with some coughing and congestion. MBS negative. Supportive care. (8) Anemia Current Visit: Yes Status: Acute Assessment and Plan: B12 low. Will give IM injection today. Anemia improving with holding Xeljanz. - Time Spent with Patient Total time spent is greater than 50% in coordination of care (as documented) at patient's floor/unit and/or counseling patient: Internal Medicine: Result - Labs CBC & Chem 7: 04/29/19 06:38 04/29/19 06:38 - Impressions Impressions Chest X-Ray 04/29/19 18:46 IMPRESSION: No acute process. D/ / Dagoberto Atkins MD / Dagoberto Atkins MD Interpreting Provider: Dagoberto Atkins MD Consult Discharge Plan - Plan Referrals: Fermín Arevalo MD [Partnered Physician] - (Schedule follow up for 1 week) Joe Marie MD [Primary Care Provider] - (2) Pneumonia Qualifiers: Pneumonia type: aspiration pneumonia Aspiration pneumonia type: due to gastric secretions Laterality: right Lung location: lower lobe of lung Qualified Code(s): J69.0 - Pneumonitis due to inhalation of food and vomit (4) HTN (hypertension) Qualifiers: Hypertension type: essential hypertension Qualified Code(s): I10 - Essential (primary) hypertension (5) Rheumatoid arthritis Qualifiers: Rheumatoid arthritis location: multiple sites Rheumatoid factor presence: unspecified presence Qualified Code(s): M06.9 - Rheumatoid arthritis, unspecified (6) Ptosis Qualifiers: Laterality: right Qualified Code(s): H02.401 - Unspecified ptosis of right eyelid (7) Dysphagia Qualifiers: Dysphagia type: unspecified Qualified Code(s): R13.10 - Dysphagia, unspecified (8) Anemia Qualifiers: Anemia type: unspecified type Qualified Code(s): D64.9 - Anemia, unspecified
[2019-04-30] MEDS ORDERED: Cyanocobalamin (B-12) 1,000 MCG/ML VIAL IM ONE (11:20)
[2019-05-01] MEDS: Ampicillin/Sulbactam 1,500 MG in 0.9 % Sodium Chloride Mini Bag 100 ML IVPB SCH ×2 (00:06→05:56)
[2019-05-01 04:08] LABS: Hematocrit 32.6 % (35.3-44.9); Hemoglobin 10.7 g/dL (11.5-15.4); Mean Corpuscular HGB Conc 32.8 g/dL (31.6-35.5); Mean Corpuscular Hemoglobin 30.1 pg (28.0-33.3); Mean Corpuscular Volume 91.8 fL (83.0-100.0); Mean Platelet Volume 9.5 fL (9.4-12.4); Platelet Count 221 K/mcL (140-400); Red Blood Count 3.55 M/mcL (3.82-4.97); Red Cell Distribution Width 14.6 % (11.5-14.5); White Blood Count 11.5 K/mcL (4.3-11.1)
[2019-05-01 04:28] LABS: BUN/Creatinine Ratio 22 (6-26); Blood Urea Nitrogen 18 mg/dL (8-23); Calcium 8.3 mg/dL (8.6-10.3); Carbon Dioxide 24 mEq/L (23-29); Chloride 108 mEq/L (98-107); Glucose 105 mg/dL (70-105); Osmolality,Calculated 290 (280-300); Potassium 3.7 mEq/L (3.5-5.1); Sodium 139 mEq/L (136-145); eGFR For African Americans > 60 (> 60); eGFR For Non-African Americans > 60 (> 60)
[2019-05-01] MEDS: Ipratropium/Albuterol Neb 3 ML IH SCH ×3 (05:09→15:38)
[2019-05-01] MEDS: Magnesium Oxide 400 MG TABLET PO SCH (08:09)
[2019-05-01] MEDS: Aspirin 81 MG TAB.CHEW PO SCH (08:09)
[2019-05-01] MEDS: Cyanocobalamin (B-12) 1,000 MCG TABLET PO SCH (08:10)
[2019-05-01] MEDS: Metoprolol XL (24 HR) Succ 25 MG TAB.ER.24H PO SCH (08:10)
[2019-05-01] MEDS: predniSONE 20 MG TABLET PO SCH (08:10)
--- NOTE | 2019-05-01 09:59 | Discharge Summary ---
<Jeremy Kingston Kassandra - Last Filed: 05/01/19 13:37> - NOTES TO OUTPATIENT PROVIDER Notes to Outpatient Provider: Ms. Jara is a 79 year old female with PMHx of COPD, RA who presented to ED with cough and dyspnea. She was evaluated, felt to have COPD exacerbation and possible pneumonia, and admitted. Patient was treated with IV antibiotics and nebulizers with improvement. She began to develop ptosis and dysphagia on hospital day 3. GI and neurology were consulted. Assumptive diagnosis was myasthenia gravis and pt started on pyridostigmine with improvement. Xeljanz was discontinued and patient had improvement in neurologic symptoms and anemia. Plan is to continue pyridostigmine PRN, Augmentin, and steroid taper at discharge with plan to follow-up with Neuro, GI, and shaker repairer. Holter monitor given at discharge for 1 episode of tachy-humaira syndrome. Orders not resulted at time of discharge: Pending orders 04/25/19 15:14 Influenza A,B and RSV by PCR [[facility]] Routine Legionella Antigen [] Routine S. Pneumoniae Antigen [] Routine 04/28/19 Culture,CSF,with Gram Stain [] Routine Gram Stain [] Routine Date of Encounter: 05/01/19 Time of Encounter: 09:57 - Discharge Diagnosis (1) Pneumonia Priority: Primary Status: Suspected Assessment and Plan: Pt presented to ED with cough and dyspnea. She developed severe GERD and was at risk of aspiration PNA. Both CXRs negative for acute process. Patient was started on Unasyn and nebulizers with rapid improvement in symptoms. - Pt to be started on 6 days of 875mg Augmentin BID at discharge. - Home inhalers as prescribed. - Follow-up with PCP. Qualifiers: Pneumonia type: aspiration pneumonia Aspiration pneumonia type: due to gastric secretions Laterality: right Lung location: lower lobe of lung Qualified Code(s): J69.0 - Pneumonitis due to inhalation of food and vomit (2) Acute exacerbation of chronic obstructive airways disease Priority: Secondary Status: Resolved Assessment and Plan: Pt with acute episode of dyspnea and cough at presentation. Concern for COPD exacerbation and aspiration PNA. Patient was treated with IV abx's and nebulizers with rapid improvement. - Patient discharged on 30 mg prednisone taper and PO Augmentin. - Continue home inhalers. - Follow-up with PCP. (3) Anemia Priority: Secondary Status: Acute Assessment and Plan: Patient with anemia that improved after holding Xeljanz. Pt was also given 1 dose of B12 for repletion. Plan is to continue to hold Xeljanz until f/u with shaker repairer. - Steroid taper for RA. - Follow up with PCP and shaker repairer. Qualifiers: Anemia type: unspecified type Qualified Code(s): D64.9 - Anemia, unspecified (4) Tachy-humaira syndrome Priority: Secondary Status: Suspected Assessment and Plan: Patient developed tachy-humaira syndrome on 04/30/19 with improvement in her symptoms this morning. Likely related to Mestinon. Metoprolol will be continued at discharge. Cardiology consulted and recommended op follow-up and holter monitor at discharge. - Holter at discharge. - F/U with cardiology. - Continue Mestinon PRN. - Continue home Metoprolol. (5) Dysphagia Priority: Secondary Status: Resolved Assessment and Plan: Patient developed symptoms of dysphagia on hospital day 3. There was concern for underlying MG based on pts history of autoimmune disease. Neuro was consulted and started patient on Mestinon with improvement in symptoms. Xeljanz was also discontinued with improvement in symptoms. Unlikely to be MG based on neuro workup. - F/U with Dr. Rivero at [facility]. - 30 days of Mestinon given PRN. Qualifiers: Dysphagia type: unspecified Qualified Code(s): R13.10 - Dysphagia, unspecified (6) Ptosis Priority: Secondary Status: Resolved Assessment and Plan: see above Qualifiers: Laterality: right Qualified Code(s): H02.401 - Unspecified ptosis of right eyelid Hospital course: Ms. Jara is a 79 year old female with a PMHx of RA, COPD, HTN complaining of difficulty breathing, cough and SOB. This was associated with severe episode of GERD. It was determined that patient may have devolped aspiration PNA with concurrent COPD exacerbation. Initial CXR was normal and patient was started on oxygen, nebs, IV antibiotics and steroids with rapid improvement in her symptoms. It was noted that the patient had anemia on admission with a drop in Hgb from 10.6 to 9.5. There was concern that this may be related to home Xeljanz. Patient also developed episodes of right sided ptosis and dysphagia on hospital day 3. Neurology and GI was consulted. 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 Her symptoms were concerning for underlying myasthenia gravis based on her history of autoimmune disease and patient was started on pyridostigmine. After further w/u it was determined that her ptosis and dysphagia were not related to MG and likely side effect of Xeljanz. Pyridostigmine was continued and Xeljanz was held and patient reported no further episodes. Patient also developed episodes of tachy-humaira syndrome on 04/30/19 which was likely related to Pyridostigmine. Her metoprolol was held and patient improved without incident. Cardiology was consulted and recommended holter monitor at discharge which will be ordered. Patient to be discharged on PO Augmentin, Pyridostigmine PRN, steroid taper. Plan to follow-up with neurology, gastroenterology, PCP, rheumatology. Total hospital stay 7 days. Discharge discussed with: patient - Time Spent with Patient Total time spent providing and/or coordinating discharge services: - Discharge Medications Prescriptions: New Pyridostigmine Br [Mestinon] 60 mg PO Q8HR PRN 30 Days #30 tablet PRN Reason: eye weakness predniSONE [PredniSONE] 30 mg PO TAPER 8 Days #13 tablet Amoxicillin/Clavulanate [Augmentin] 875 mg PO BIDWM 6 Days #12 tablet Continued Aspirin 81 mg PO DAILY Esomeprazole Magnesium [Nexium] 40 mg PO DAILY Cyanocobalamin (Vitamin B-12) [Vitamin B12] 1,000 mcg PO DAILY Albuterol Sulfate [Proventil Inhaler] 2 puff IH Q4HR #1 hfa.aer.ad Metoprolol Succinate [Toprol Xl] 25 mg PO DAILY Lisinopril [Zestril] 10 mg PO DAILY Atorvastatin [Lipitor] 10 mg PO HS Calcium Carbonate/Vitamin D3 [Calcium 600 + Vit D Tablet] 1 tab PO DAILY predniSONE [PredniSONE] 2 mg PO DAILY #0 Discontinued Tofacitinib Citrate [Xeljanz] 5 mg PO BID Home Medications: Aspirin 81 mg PO DAILY 03/15/15 [History] Cyanocobalamin (Vitamin B-12) [Vitamin B12] 1,000 mcg PO DAILY 03/15/15 [History] Esomeprazole Magnesium [Nexium] 40 mg PO DAILY 03/15/15 [History] Albuterol Sulfate [Proventil Inhaler] 2 puff IH Q4HR #1 hfa.aer.ad 08/08/18 [Rx] Atorvastatin [Lipitor] 10 mg PO HS 04/25/19 [History] Calcium Carbonate/Vitamin D3 [Calcium 600 + Vit D Tablet] 1 tab PO DAILY 04/25/19 [History] Lisinopril [Zestril] 10 mg PO DAILY 04/25/19 [History] Metoprolol Succinate [Toprol Xl] 25 mg PO DAILY 04/25/19 [History] Amoxicillin/Clavulanate [Augmentin] 875 mg PO BIDWM 6 Days #12 tablet 05/01/19 [Rx] Pyridostigmine Br [Mestinon] 60 mg PO Q8HR PRN 30 Days #30 tablet 05/01/19 [Rx] predniSONE [PredniSONE] 2 mg PO DAILY #0 05/01/19 [Rx] predniSONE [PredniSONE] 30 mg PO TAPER 8 Days #13 tablet 05/01/19 [Rx] Allergies/Adverse Reactions: Allergy/AdvReac Type Severity Reaction Status Date / Time Sulfa (Sulfonamide Allergy See Verified 04/25/19 20:34 Antibiotics) Comments Hydroxychloroquine AdvReac Vomiting Verified 04/25/19 20:34 [From Plaquenil] Date of admission: 04/29/19 12:29 Primary care physician: Joe Marie MD Consults: 04/25/19 15:14 Consult to Nurse Navigator [CONS] Routine Comment: Consult to Nurse Navigator [CONS] Routine Comment: 04/27/19 08:53 Consult to Neurology [CONS] Routine Consulting Provider: [facility] Reason for Consult: R eye ptosis Call Completed: Yes 04/27/19 14:17 Consult to Gastroenterology [CONS] Routine Consulting Provider: [facility] Reason for Consult: Anemia, dysphagia Time Notified: 14:17 Call Completed: Yes 04/30/19 03:42 Consult to Cardiology [CONS] Routine Comment: Consulting Provider: [facility] Reason for Consult: Patient originally admitted for PNA and COPD exacerbation. Developed right eye droop and CVA/TIA w/u done, including Echocardiogram. Patient now has periods of tachycardia and bradycardia where HR jumps to 120s and then falls to 30s. Patient reports this happened before and she was supposed to wear a Holter but did not. Patient reports flutter in her chest during these episodes. Echo on 04/26/19 showed LVEF of 60-65%, moderate left diatolic dysfunction, BBB, mild aortic stenosis, mild tricuspid regurg, and mild pulm HTN. Call Completed: No Discharging clinician: Jeremy Kingston Anticipated date of discharge: 05/01/19 - Constitutional Vitals: Temp Pulse Resp BP Pulse Ox 97.7 F 87 16 149/71 96 05/01/19 06:48 05/01/19 06:48 05/01/19 06:48 05/01/19 06:48 05/01/19 06:48 General appearance: Present: A&O X 3, answers questions appropriately Exam: see below - Head Head exam: Present: atraumatic, normocephalic - Eye Eye exam: Present: EOMI, PERRL, conjuntiva pink Pupils: Present: normal accommodation, PERRL. Absent: miosis - ENT ENT exam: Present: mucous membranes moist, normal oropharynx - Neck Neck exam general surgery: Present: normal inspection, supple, trachea midline - Respiratory Respiratory exam: Present: CTAB. Absent: rales, rhonchi, stridor, wheezes - Cardiovascular Cardiovascular exam: Present: RRR, +S1, +S2. Absent: diastolic murmur, JVD, systolic murmur - GI/Abdominal GI/Abdominal exam: Present: normal bowel sounds, soft. Absent: firm, guarding, hepatomegaly, rebound, tenderness - Extremities Exam Extremities exam: Present: warm. Absent: cyanotic, pedal edema, tenderness - Neurological Exam Neurological exam: Present: CN II-XII intact. Absent: motor sensory deficit, no focal deficits, facial droop, speech deficit - Psychiatric Psychiatric exam: Present: normal affect, normal mood - Skin Skin exam: Present: dry, normal color, warm - Patient Status Disposition: Home, Self-Care Condition: Good Functional capacity at discharge: independent ambulation Overall status at discharge: patient is back to baseline - Discharge Instructions Follow Up With: Fermín Arevalo MD [Partnered Physician] - (Schedule follow up for 1 week Web requested 05/01/2019) Joe Marie MD [Primary Care Provider] - 05/05/19 9:15 am (Please follow up as schedule...) Concetta Rivero MD [Partnered Physician] - 05/16/19 10:00 am (Please follow as schedule...) Additional Instructions: You are being discharged home on a prednisone taper. You will take this as prescribed for 8 days and resume your 2 mg maintenance prednisone after. You have also been prescribed an antibiotic named Augmentin for aspiration pneumonia. You are to take this for 6 days, twice per day, beginning this evening 05/01/19. Cardiology recommended a home holter monitor at discharge. We have stopped your Xeljanz secondary to anemia and myasthenia gravis symptoms at this time. Please follow-up with your rheumatoloigst for continued management. You were given a prescription for 30 days Pyridostigmine. Please take this as needed for problems swallowing and/or drooping eyelids. You are scheduled to follow-up with neurology in 1-2 weeks. Please follow-up with your PCP within 1-2 weeks. Return to the ER or call 911 immediately if you develop symptoms of chest pain, nausea, vomiting, acute weakness or facial drooping. - Diet and Activity Activity: increase activity as tolerated Diet: advance to your usual diet <Tommy Person - Last Filed: 05/01/19 14:56> Orders not resulted at time of discharge: Pending orders 04/25/19 15:14 Influenza A,B and RSV by PCR [[facility]] Routine Legionella Antigen [RM] Routine S. Pneumoniae Antigen [RM] Routine Date of Encounter: 05/01/19 - Discharge Diagnosis (1) Tachy-humaira syndrome Status: Suspected (2) Pneumonia Status: Suspected Qualifiers: Pneumonia type: aspiration pneumonia Aspiration pneumonia type: due to gastric secretions Laterality: right Lung location: lower lobe of lung Qualified Code(s): J69.0 - Pneumonitis due to inhalation of food and vomit (3) COPD exacerbation Priority: Secondary Status: Suspected (4) HTN (hypertension) Priority: Secondary Status: Chronic Qualifiers: Hypertension type: essential hypertension Qualified Code(s): I10 - Essential (primary) hypertension (5) Rheumatoid arthritis Priority: Secondary Status: Chronic Qualifiers: Rheumatoid arthritis location: multiple sites Rheumatoid factor presence: unspecified presence Qualified Code(s): M06.9 - Rheumatoid arthritis, unspecified (6) Ptosis Status: Resolved Qualifiers: Laterality: right Qualified Code(s): H02.401 - Unspecified ptosis of right eyelid (7) Dysphagia Status: Resolved Qualifiers: Dysphagia type: unspecified Qualified Code(s): R13.10 - Dysphagia, unspecified (8) Anemia Status: Acute Qualifiers: Anemia type: unspecified type Qualified Code(s): D64.9 - Anemia, unspecified Hospital course: Ms. Jara is a 79 year old female - Time Spent with Patient Total time spent providing and/or coordinating discharge services: 38min Date of admission: 04/29/19 12:29 Primary care physician: Joe Marie MD Consults: 04/25/19 15:14 Consult to Nurse Navigator [CONS] Routine Comment: Consult to Nurse Navigator [CONS] Routine Comment: 04/27/19 08:53 Consult to Neurology [CONS] Routine Consulting Provider: [facility] Reason for Consult: R eye ptosis Call Completed: Yes 04/27/19 14:17 Consult to Gastroenterology [CONS] Routine Consulting Provider: [facility] Reason for Consult: Anemia, dysphagia Time Notified: 14:17 Call Completed: Yes 04/30/19 03:42 Consult to Cardiology [CONS] Routine Comment: Consulting Provider: [facility] Reason for Consult: Patient originally admitted for PNA and COPD exacerbation. Developed right eye droop and CVA/TIA w/u done, including Echocardiogram. Patient now has periods of tachycardia and bradycardia where HR jumps to 120s and then falls to 30s. Patient reports this happened before and she was supposed to wear a Holter but did not. Patient reports flutter in her chest during these episodes. Echo on 04/26/19 showed LVEF of 60-65%, moderate left diatolic dysfunction, BBB, mild aortic stenosis, mild tricuspid regurg, and mild pulm HTN. Call Completed: No - Constitutional Vitals: Temp Pulse Resp BP Pulse Ox 97.8 F 73 18 151/76 98 05/01/19 14:00 05/01/19 14:00 05/01/19 11:11 05/01/19 14:00 05/01/19 14:00 - Attending Attestation I examined this patient and my medical decision-making was reviewed with the Resident Physician on 05/01/19. I agree with the documented findings, disposition and treatment plan as described except to the extent set forth below. Ms Jara has been admitted for pneumonia with concern for aspiration. She developed anemia and myasthenic symptoms felt due to Xeljanz. Med was stopped and hemoglobin improved. She was started on Mestinon with improvement. Med made PRN when developed some bradycardia. She had issues with dysphagia and had further work up which was negative. Abx changed with improvement. She was seen by cardiology and neurology. Today she is afebrile and ready for discharge. Exam alert comfortable Moist cough. NC Mucus membranes dry. No tachycardia. Scant wheeze No edema Plan D/C home today 5 more days Augmentin Steroid taper Mestinon PRN Holter per cardiology Follow up with Cardiology and neurology and her shaker repairer.
[2019-05-01] MEDS ORDERED: Ampicillin/Sulbactam 3,000 MG in 0.9 % Sodium Chloride Mini Bag 100 ML IVPB SCH (12:00)
[2019-05-01] MEDS ORDERED: FLU Vac QV 19-20 (6Month+)/PF 0.5 ML SYRINGE IM ONE (12:54)
--- NOTE | 2019-05-01 13:09 | Electrocardiograph Report ---
[address] [address] Test Date: 2019-04-30 Pat Name: Susanne Jraa Department: 112 Room: [facility] Gender: F [employer]ical [employer] Programmer: : 1940 Requested By: Jonathan Quiñones Order Number: [id number] Reading MD: Jan Rios Measurements Intervals [place] Rate: 48 P: -17 FL: 152 QRS: -23 QRSD: 89 T: 30 QT: 412 QTc: 378 Interpretive Statements SINUS BRADYCARDIA BORDERLINE LEFT AXIS DEVIATION Electronically Signed On 05-01-2019 13:07:54 EDT by Jan Rios
[2019-05-01 14:16] VITALS: BP 151/76
== END 2019-05-01 16:43 | disposition home or self-care (01) | DRG 178 ==
LOC: 2ANU 11:12 → EMEROOARM 11:12 → 2ANU 16:41
PROVIDERS: ADMIT Internal Medicine; ATTEND Internal Medicine

== ENCOUNTER 2020-07-13 20:48 | Inpatient (IN) ==
[2020-07-13] MEDS ORDERED: *HR* Dextrose 50 % in Water (Vial) 50 ML VIAL ONE (20:53)
[2020-07-13] MEDS ORDERED: Ondansetron 4 MG/2 ML VIAL IVP ONE (20:56)
[2020-07-13] MEDS ORDERED: Isovue-370 500 ML BOTTLE IVP ONE (20:58)
[2020-07-13] MEDS ORDERED: *HR* Dextrose 50 % in Water (Vial) 50 ML VIAL IVP ONE ×2 (21:05→22:52)
[2020-07-13 21:16] LABS: Basophils % 0.2 %; Eosinophils # 0.1 K/mcL (0.0-0.6); Eosinophils % 0.6 %; Hematocrit 43.4 % (35.3-44.9); Hemoglobin 13.8 g/dL (11.5-15.4); Immature Granulocytes % 0.8 % (0-4); Lymphocytes # 0.6 K/mcL (0.6-4.6); Lymphocytes % 3.3 %; Mean Corpuscular HGB Conc 31.8 g/dL (31.6-35.5); Mean Corpuscular Hemoglobin 30.5 pg (28.0-33.3); Mean Platelet Volume 9.3 fL (9.4-12.4); Monocytes # 0.1 K/mcL (0.0-1.3); Monocytes % 0.6 %; Nucleated Red Blood Cells 0.1 /100 WBC (0); Platelet Count 296 K/mcL (140-400); Red Blood Count 4.52 M/mcL (3.82-4.97); Red Cell Distribution Width 14.1 % (11.5-14.5); Segmented Neutrophils % 94.5 %
[2020-07-13 21:19] LABS: INR 1.4; Prothrombin Time 15.7 Seconds (9.4-12.1)
[2020-07-13] MEDS ORDERED: 0.9 % Sodium Chloride 1,000 ML IVC ONE ×3 (21:20→22:41)
[2020-07-13 21:21] LABS: Activated Partial Thrombo Time 28.1 Seconds (26.0-36.0)
[2020-07-13] MEDS ORDERED: 0.9 % Sodium Chloride 1,000 ML ONE ×2 (21:21→21:59)
[2020-07-13 21:38] LABS: Albumin 3.6 g/dL (3.5-5.7); Albumin/Globulin Ratio 1.4 (1.1-2.2); Bilirubin,Direct 0.1 mg/dL (0.0-0.2); Bilirubin,Indirect 0.4 mg/dL (0.0-1.0); Bilirubin,Total 0.5 mg/dL (0.3-1.0); Calcium 9.8 mg/dL (8.6-10.3); Globulin 2.5 g/dL (2.4-3.5); Potassium 3.6 mEq/L (3.5-5.1); Total Protein 6.1 g/dL (6.4-8.9)
[2020-07-13 21:42] LABS: Troponin I 0.34 ng/mL (< 0.04)
[2020-07-13] MEDS ORDERED: cefTRIAXone 1,000 MG in 0.9 % Sodium Chloride Mini Bag 100 ML IVPB ONE (22:58)
[2020-07-13] MEDS ORDERED: Hydrocortisone Sodium Succ 100 MG/2 ML VIAL IVP ONE (23:12)
[2020-07-13] MEDS ORDERED: Norepinephrine 4 MG/254 ML IV.SOLN IVC SCH (23:45)
[2020-07-14 00:04] LABS: Bacteria,Urine Few per hpf (None-Few); Bilirubin,Urine Negative (Negative); Blood,Urine Moderate (Negative); Clarity,Urine Ex.Turbid (Clear); Color,Urine Dark-Yellow (Yellow); Glucose,Urine (UA) Normal (Normal); Ketones,Urine Negative (Negative); Leukocyte Esterase,Urine Large (Negative); Mucus,Urine Few per lpf (None-Few); Nitrite,Urine Negative (Negative); Protein,Urine >=300 mg/dL (Neg-Trace); RBC,Urine 0-3 per hpf (0-3); Specific Gravity,Urine 1.018 (1.010-1.025); Urobilinogen,Urine Normal (Normal); WBC,Urine 15-30 per hpf (0-3)
[2020-07-14] MEDS ORDERED: Naloxone 0.4 MG/ML INJ IVP PRN ×2 (01:32→22:45)
[2020-07-14 03:13] LABS: Basophils % 0.2 %; Eosinophils % 0.1 %
[2020-07-14 03:14] LABS: Basophils # 0.1 K/mcL (0.0-0.2); Hematocrit 37.7 % (35.3-44.9); Hemoglobin 11.9 g/dL (11.5-15.4); Immature Granulocytes % 0.9 % (0-4); Lymphocytes # 0.3 K/mcL (0.6-4.6); Lymphocytes % 1.1 %; Mean Corpuscular HGB Conc 31.6 g/dL (31.6-35.5); Mean Corpuscular Hemoglobin 31.2 pg (28.0-33.3); Mean Corpuscular Volume 98.7 fL (83.0-100.0); Mean Platelet Volume 9.6 fL (9.4-12.4); Monocytes # 0.9 K/mcL (0.0-1.3); Monocytes % 3.6 %; Neutrophils # 22.7 K/mcL (1.6-8.9); Nucleated Red Blood Cells 0.1 /100 WBC (0); Platelet Count 289 K/mcL (140-400); Red Blood Count 3.82 M/mcL (3.82-4.97); Red Cell Distribution Width 14.3 % (11.5-14.5); Segmented Neutrophils % 94.1 %; White Blood Count 24.1 K/mcL (4.3-11.1)
[2020-07-14 03:31] LABS: INR 1.4; Prothrombin Time 16.1 Seconds (9.4-12.1)
[2020-07-14 03:33] LABS: Albumin/Globulin Ratio 1.4 (1.1-2.2); Bilirubin,Total 0.4 mg/dL (0.3-1.0); Calcium 7.8 mg/dL (8.6-10.3); Globulin 2.1 g/dL (2.4-3.5); Potassium 3.8 mEq/L (3.5-5.1); Total Protein 5.1 g/dL (6.4-8.9)
[2020-07-14] MEDS ORDERED: Dextrose Gel 15 GM/37.5 ML TUBE PO PRN ×4 (03:45→22:45)
[2020-07-14] MEDS ORDERED: *HR* Dextrose 50 % in Water (Vial) 50 ML VIAL IVP PRN ×2 (03:45→22:45)
[2020-07-14] MEDS ORDERED: D5% in Water 1,000 ML IVC PRN ×2 (03:45→22:45)
[2020-07-14] MEDS ORDERED: Ondansetron 4 MG/2 ML VIAL IVP PRN ×2 (03:45→22:45)
[2020-07-14 04:07] LABS: Platelet Estimate Normal (Normal)
[2020-07-14] MEDS: Hydrocortisone Sodium Succ 100 MG/2 ML VIAL IVP SCH ×4 (05:02→23:21)
[2020-07-14] MEDS ORDERED: Perflutren Lipid Microsphere 1.3 ML in 0.9 % Sodium Chloride 8.7 ML IVP PRN (05:06)
[2020-07-14] MEDS ORDERED: 0.9 % Sodium Chloride 1,000 ML IVC ONE (05:13)
[2020-07-14] MEDS: Pantoprazole 40 MG VIAL IVP SCH ×2 (05:24→16:31)
[2020-07-14 05:45] LABS: Troponin I 0.27 ng/mL (< 0.04)
[2020-07-14] MEDS ORDERED: Acetaminophen 325 MG TABLET PO PRN ×4 (08:10→22:45)
[2020-07-14] MEDS: Apixaban 5 MG TABLET PO SCH ×2 (08:36→19:55)
[2020-07-14] MEDS ORDERED: Aspirin Enteric Coated 81 MG Tablet PO SCH (09:00)
[2020-07-14] MEDS ORDERED: cefTRIAXone 1,000 MG in Water for inj. (sterile) 10 ML IVP SCH (09:00)
[2020-07-14 14:49] LABS: Calcium 7.3 mg/dL (8.6-10.3); Potassium 3.6 mEq/L (3.5-5.1)
[2020-07-14 16:57] LABS: Acinetobacter baumannii by PCR Not Detected (Not Detect); Candida albicans by PCR Not Detected (Not Detect); Candida glabrata by PCR Not Detected (Not Detect); Candida krusei by PCR Not Detected (Not Detect); Candida parapsilosis by PCR Not Detected (Not Detect); Candida tropicalis by PCR Not Detected (Not Detect); Enterobacter cloacae Cmplx PCR Not Detected (Not Detect); Enterococcus by PCR Not Detected (Not Detect); Escherichia coli by PCR DETECTED (Not Detect); Klebsiella oxytoca by PCR Not Detected (Not Detect); Klebsiella pneumoniae by PCR Not Detected (Not Detect); Proteus by PCR Not Detected (Not Detect); Pseudomonas aeruginosa by PCR Not Detected (Not Detect); Serratia marcescens by PCR Not Detected (Not Detect); Staphylococcus aureus by PCR Not Detected (Not Detect); Staphylococcus by PCR Not Detected (Not Detect); Streptococcus agalactiae(B)PCR Not Detected (Not Detect); Streptococcus by PCR Not Detected (Not Detect); Streptococcus pneumoniae PCR Not Detected (Not Detect); Streptococcus pyogenes (A) PCR Not Detected (Not Detect); blaKPC Carbapenem-Resist Gene Not Detected (Not Detect)
[2020-07-15 03:48] LABS: Hematocrit 30.3 % (35.3-44.9); Mean Corpuscular Hemoglobin 31.3 pg (28.0-33.3); Mean Platelet Volume 9.4 fL (9.4-12.4); Platelet Count 172 K/mcL (140-400); Red Blood Count 3.19 M/mcL (3.82-4.97); Red Cell Distribution Width 14.5 % (11.5-14.5); White Blood Count 20.3 K/mcL (4.3-11.1)
[2020-07-15 04:08] LABS: Calcium 7.3 mg/dL (8.6-10.3); Potassium 3.6 mEq/L (3.5-5.1)
[2020-07-15] MEDS: Hydrocortisone Sodium Succ 100 MG/2 ML VIAL IVP SCH ×3 (05:45→20:29)
[2020-07-15] MEDS: Apixaban 5 MG TABLET PO SCH ×2 (07:44→20:28)
[2020-07-15] MEDS: Aspirin Enteric Coated 81 MG Tablet PO SCH (07:44)
[2020-07-15] MEDS: cefTRIAXone 2,000 MG in Water for inj. (sterile) 20 ML IVP SCH (07:44)
[2020-07-15] MEDS ORDERED: cefTRIAXone 2,000 MG in Water for inj. (sterile) 20 ML IVP SCH (09:00)
[2020-07-16] MEDS: Hydrocortisone Sodium Succ 100 MG/2 ML VIAL IVP SCH ×3 (03:27→23:55)
[2020-07-16 03:51] LABS: Basophils % 0.1 %; Hematocrit 28.8 % (35.3-44.9); Hemoglobin 9.5 g/dL (11.5-15.4); Immature Granulocytes % 0.7 % (0-4); Lymphocytes # 0.6 K/mcL (0.6-4.6); Lymphocytes % 3.5 %; Mean Corpuscular Hemoglobin 31.4 pg (28.0-33.3); Mean Platelet Volume 10.1 fL (9.4-12.4); Monocytes # 0.6 K/mcL (0.0-1.3); Monocytes % 3.1 %; Neutrophils # 16.6 K/mcL (1.6-8.9); Platelet Count 152 K/mcL (140-400); Red Blood Count 3.03 M/mcL (3.82-4.97); Red Cell Distribution Width 14.4 % (11.5-14.5); Segmented Neutrophils % 92.6 %; White Blood Count 17.9 K/mcL (4.3-11.1)
[2020-07-16 04:08] LABS: BUN/Creatinine Ratio 25 (6-26); Blood Urea Nitrogen 22 mg/dL (8-23); Calcium 7.4 mg/dL (8.6-10.3); Carbon Dioxide 21 mEq/L (23-29); Chloride 114 mEq/L (98-107); Glucose 111 mg/dL (70-105); Osmolality,Calculated 298 (280-300); Potassium 3.6 mEq/L (3.5-5.1); Sodium 142 mEq/L (136-145); eGFR For African Americans > 60 (> 60); eGFR For Non-African Americans > 60 (> 60)
[2020-07-16 04:09] LABS: Magnesium 1.3 mg/dL (1.6-2.6)
[2020-07-16 04:14] LABS: Troponin I 0.07 ng/mL (< 0.04)
[2020-07-16] MEDS: cefTRIAXone 2,000 MG in Water for inj. (sterile) 20 ML IVP SCH (08:05)
[2020-07-16] MEDS: Apixaban 5 MG TABLET PO SCH ×2 (08:05→20:53)
[2020-07-16] MEDS: Aspirin Enteric Coated 81 MG Tablet PO SCH (08:05)
[2020-07-16] MEDS ORDERED: Hydrocortisone Sodium Succ 100 MG/2 ML VIAL IVP SCH (12:00)
[2020-07-17 00:26] LABS: Basophils % 0.1 %; Hemoglobin 10.1 g/dL (11.5-15.4); Immature Granulocytes % 0.6 % (0-4); Lymphocytes # 0.6 K/mcL (0.6-4.6); Lymphocytes % 3.5 %; Mean Corpuscular HGB Conc 32.6 g/dL (31.6-35.5); Mean Corpuscular Hemoglobin 30.8 pg (28.0-33.3); Mean Corpuscular Volume 94.5 fL (83.0-100.0); Mean Platelet Volume 10.2 fL (9.4-12.4); Monocytes # 0.5 K/mcL (0.0-1.3); Platelet Count 160 K/mcL (140-400); Red Blood Count 3.28 M/mcL (3.82-4.97); Red Cell Distribution Width 14.3 % (11.5-14.5); Segmented Neutrophils % 92.8 %; White Blood Count 17.2 K/mcL (4.3-11.1)
[2020-07-17 00:48] LABS: BUN/Creatinine Ratio 24 (6-26); Blood Urea Nitrogen 18 mg/dL (8-23); Calcium 7.7 mg/dL (8.6-10.3); Carbon Dioxide 20 mEq/L (23-29); Chloride 113 mEq/L (98-107); Glucose 130 mg/dL (70-105); Magnesium 2.1 mg/dL (1.6-2.6); Osmolality,Calculated 294 (280-300); Potassium 3.9 mEq/L (3.5-5.1); Sodium 140 mEq/L (136-145); eGFR For African Americans > 60 (> 60); eGFR For Non-African Americans > 60 (> 60)
[2020-07-17 00:59] LABS: Troponin I 0.06 ng/mL (< 0.04)
[2020-07-17 04:20] LABS: Hemoglobin 10.3 g/dL (11.5-15.4); Mean Corpuscular HGB Conc 32.2 g/dL (31.6-35.5); Mean Corpuscular Hemoglobin 30.5 pg (28.0-33.3); Mean Corpuscular Volume 94.7 fL (83.0-100.0); Mean Platelet Volume 10.4 fL (9.4-12.4); Platelet Count 170 K/mcL (140-400); Red Blood Count 3.38 M/mcL (3.82-4.97); Red Cell Distribution Width 14.3 % (11.5-14.5); White Blood Count 15.7 K/mcL (4.3-11.1)
[2020-07-17] MEDS: Ipratropium/Albuterol Neb 3 ML IH PRN (04:27)
[2020-07-17] MEDS: Aspirin Enteric Coated 81 MG Tablet PO SCH (10:00)
[2020-07-17] MEDS: Apixaban 5 MG TABLET PO SCH ×2 (10:00→21:22)
[2020-07-17] MEDS: cefTRIAXone 2,000 MG in Water for inj. (sterile) 20 ML IVP SCH (10:00)
[2020-07-17] MEDS: Hydrocortisone Sodium Succ 100 MG/2 ML VIAL IVP SCH ×2 (10:01→16:40)
[2020-07-18] MEDS: Hydrocortisone Sodium Succ 100 MG/2 ML VIAL IVP SCH
[2020-07-18] MEDS: Ipratropium/Albuterol Neb 3 ML IH PRN (00:31)
[2020-07-18 05:05] LABS: Hematocrit 29.3 % (35.3-44.9); Hemoglobin 9.6 g/dL (11.5-15.4); Mean Corpuscular HGB Conc 32.8 g/dL (31.6-35.5); Mean Corpuscular Hemoglobin 30.5 pg (28.0-33.3); Mean Platelet Volume 10.5 fL (9.4-12.4); Platelet Count 173 K/mcL (140-400); Red Blood Count 3.15 M/mcL (3.82-4.97); Red Cell Distribution Width 14.1 % (11.5-14.5); White Blood Count 12.3 K/mcL (4.3-11.1)
[2020-07-18 05:10] LABS: BUN/Creatinine Ratio 27 (6-26); Blood Urea Nitrogen 18 mg/dL (8-23); Carbon Dioxide 23 mEq/L (23-29); Chloride 112 mEq/L (98-107); Glucose 123 mg/dL (70-105); Osmolality,Calculated 297 (280-300); Potassium 3.1 mEq/L (3.5-5.1); Sodium 142 mEq/L (136-145); eGFR For African Americans > 60 (> 60); eGFR For Non-African Americans > 60 (> 60)
[2020-07-18] MEDS ORDERED: Potassium Chloride 40 MEQ, Lidocaine 1% 2 ML in 0.9 % Sodium Chloride 500 ML IVPB ONE (08:32)
[2020-07-18] MEDS ORDERED: predniSONE 1 MG TABLET PO SCH (09:45)
[2020-07-18] MEDS: cefTRIAXone 2,000 MG in Water for inj. (sterile) 20 ML IVP SCH (10:22)
[2020-07-18] MEDS: Apixaban 5 MG TABLET PO SCH (10:22)
[2020-07-18] MEDS: Aspirin Enteric Coated 81 MG Tablet PO SCH (10:23)
[2020-07-18 11:10] VITALS: BP 137/72
== END 2020-07-18 15:11 | disposition home health service (06) | DRG 871 ==
LOC: EMEROOARM 20:48 → ICNU 20:48 → SUATTDRO 07-14 01:32 → ICNU 07-14 02:15 → 3ANU 07-14 22:37
PROVIDERS: ADMIT Internal Medicine; ATTEND Family Medicine

== ENCOUNTER 2022-04-20 00:21 | Observation (INO) ==
[2022-04-20] MEDS ORDERED: *HR* HYDROcodone/Acet 10/325 mg TABLET PO ONE (04:18)
[2022-04-20] MEDS ORDERED: Morphine Sulfate 2 MG/ML SYRINGE IVP ONE (04:44)
[2022-04-20] MEDS ORDERED: Piperacillin/Tazobactam 3.375 GM in 0.9 % Sodium Chloride Mini Bag 100 ML IVPB ONE (04:50)
[2022-04-20] MEDS ORDERED: Iopamidol - 370 500 ML MLS IVP ONE (05:08)
[2022-04-20] MEDS ORDERED: Naloxone 0.4 MG/ML INJ IVP PRN (07:41)
[2022-04-20] MEDS ORDERED: Melatonin 3 MG TABLET PO PRN (07:41)
[2022-04-20] MEDS ORDERED: Ondansetron 4 MG/2 ML VIAL IVP PRN (07:41)
[2022-04-20] MEDS ORDERED: Albuterol 2.5 MG/3 ML NEBULIZER IH PRN (10:59)
[2022-04-20] MEDS: Apixaban 5 MG TABLET PO SCH ×2 (11:26→22:26)
[2022-04-20] MEDS: Metoprolol XL (24 HR) Succ 25 MG TAB.ER.24H PO SCH (11:26)
[2022-04-20 12:55] LABS: Influenza A PCR Negative (Negative); Influenza B PCR Negative (Negative); Resp. Syncytial Virus PCR Negative (Negative)
[2022-04-20 13:11] LABS: SARS-CoV-2 by PCR (In House) Negative (Negative)
[2022-04-20] MEDS: Piperacillin/Tazobactam 3.375 GM in 0.9 % Sodium Chloride Mini Bag 100 ML IVPB SCH ×2 (14:41→22:28)
[2022-04-20] MEDS: *HR* HYDROcodone/Acet 5/325 mg TABLET PO PRN ×2 (14:41→22:29)
[2022-04-21] MEDS: Piperacillin/Tazobactam 3.375 GM in 0.9 % Sodium Chloride Mini Bag 100 ML IVPB SCH ×3 (06:36→21:22)
[2022-04-21] MEDS: Metoprolol XL (24 HR) Succ 25 MG TAB.ER.24H PO SCH (09:39)
[2022-04-21] MEDS: Apixaban 5 MG TABLET PO SCH ×2 (09:39→20:01)
[2022-04-21] MEDS: Acetaminophen 325 MG TABLET PO PRN (09:39)
[2022-04-21 12:27] LABS: Basophils % 0.2 %; Eosinophils # 0.1 K/mcL (0.0-0.6); Hematocrit 31.1 % (35.3-44.9); Hemoglobin 10.2 g/dL (11.5-15.4); Immature Granulocytes % 0.4 % (0-4); Lymphocytes # 0.3 K/mcL (0.6-4.6); Lymphocytes % 5.8 %; Mean Corpuscular HGB Conc 32.8 g/dL (31.6-35.5); Mean Corpuscular Hemoglobin 31.6 pg (28.0-33.3); Mean Corpuscular Volume 96.3 fL (83.0-100.0); Monocytes # 0.7 K/mcL (0.0-1.3); Neutrophils # 4.4 K/mcL (1.6-8.9); Platelet Count 202 K/mcL (140-400); Red Blood Count 3.23 M/mcL (3.82-4.97); Red Cell Distribution Width 14.1 % (11.5-14.5); Segmented Neutrophils % 79.6 %; White Blood Count 5.5 K/mcL (4.3-11.1)
[2022-04-21 12:49] LABS: Potassium 4.2 mEq/L (3.5-5.1)
[2022-04-21 13:08] LABS: Influenza A PCR Negative (Negative); Influenza B PCR Negative (Negative); Resp. Syncytial Virus PCR Negative (Negative)
[2022-04-21 13:19] LABS: SARS-CoV-2 by PCR (In House) Negative (Negative)
[2022-04-21] MEDS: *HR* HYDROcodone/Acet 5/325 mg TABLET PO PRN (19:57)
[2022-04-22 05:03] LABS: Calcium 8.4 mg/dL (8.6-10.3)
[2022-04-22] MEDS: Acetaminophen 325 MG TABLET PO PRN (05:44)
[2022-04-22] MEDS: *HR* HYDROcodone/Acet 5/325 mg TABLET PO PRN (05:44)
[2022-04-22] MEDS: Piperacillin/Tazobactam 3.375 GM in 0.9 % Sodium Chloride Mini Bag 100 ML IVPB SCH (05:45)
[2022-04-22 07:17] VITALS: BP 131/53; PULSE 65; TEMP 97.1; O2SAT 97
[2022-04-22] MEDS: Apixaban 5 MG TABLET PO SCH (07:55)
[2022-04-22] MEDS: Metoprolol XL (24 HR) Succ 25 MG TAB.ER.24H PO SCH (07:55)
== END 2022-04-22 10:22 | disposition home or self-care (01) ==
LOC: EMEROOARM 00:21 → 3NENU 00:21 → SUATTDRO 07:33 → 3NENU 10:30
PROVIDERS: ADMIT Internal Medicine; ATTEND Hospitalist